=== PATIENT | female | born 1985 | race Caucasian/White ===

== ENCOUNTER → 2019-09-01 17:24 | Outpatient (CLI) | payer OTHER, SELFPAY ==
--- NOTE | ~2019-09-01 | MR_ITS ---
. EXAMINATION: MR lumbar spine wo con DATE: 09/01/2019 18:14 INDICATION: Low back pain radiating into hips and legs. TECHNIQUE: Magnetic resonance imaging (MRI) of the lumbar spine was performed without intravenous con trast. Sequences included sagittal T2-weighted FSE, sagittal T2-weighted FS FSE, sagittal T1-weighted FSE, and axial T2-weighted FSE. COMPARISON: None FINDINGS: There is 3 mm retrolisthesis of L5 on S1. There is mild chronic anterior wedging of T11 isaac tebral body. There are Schmorl's nodes from T10-T11 through L1-L2. There is moderately decreased disc height at L5-S1. The distal spinal cord signal intensity is normal. The conus medullaris is at L1-L2 . The following disc levels are specifically discussed: L1-L2: The disc does not extend beyond the endplate margin. There is mild bilateral facet joint osteo arthritis. There is no neural foraminal stenosis. There is no central canal stenosis. L2-L3: The disc does not extend beyond the endplate margin. There is mild bilateral facet joint osteo arthritis. There is no neural foraminal stenosis. There is no central canal stenosis. L3-L4: The disc does not extend beyond the endplate margin. There is mild bilateral facet joint osteo arthritis. There is no neural foraminal stenosis. There is no central canal stenosis. L4-L5: The disc is bulging and has an annular fissure. There is mild bilateral facet joint osteoarthr itis. There is mild bilateral neural foraminal stenosis. There is mild central canal stenosis. L5-S1: The disc is bulging and has a superimposed right central extrusion. There is mild bilateral fa cet joint osteoarthritis. There is mild bilateral neural foraminal stenosis. There is mild central ca nal stenosis. IMPRESSION: 1. Moderate lower lumbar spondylosis. Reviewed, dictated and finalized at location A. FRENCH
== END ==
DX: M47.896 Other spondylosis, lumbar region (principal)
CPT/HCPCS: 72148

== ENCOUNTER 2020-03-24 09:47 | Outpatient (CLI) | payer OTHER, SELFPAY ==
--- NOTE | ~2020-03-24 | US_ITS ---
EXAMINATION:US venous doppler LE BI INDICATION:Lower extremity swelling. TECHNIQUE: Multiple grayscale, color flow and Doppler images of the lower extremity deep venous syste ms were obtained and reviewed. COMPARISON:Ultrasound dated 12/27/2012 FINDINGS: The common femoral, superficial femoral and popliteal veins demonstrate normal respiratory variation, augmentation and compressibility. Color flow is also seen within the posterior tibial, pe roneal, greater saphenous and profunda veins. IMPRESSION: 1: No lower extremity deep venous thrombosis. Reviewed, dictated and finalized at location A.
== END 2020-03-24 09:48 | disposition home or self-care (01) ==
PROVIDERS: PCP Internal Medicine; Visit Provider Orthopaedic Surgery
DX: M79.89 Other specified soft tissue disorders (principal); Z98.1 Arthrodesis status
CPT/HCPCS: 93970

== ENCOUNTER 2021-06-20 11:25 | Outpatient (CLI) | payer OTHER, SELFPAY ==
--- NOTE | ~2021-06-20 | MMUS_ITS ---
EXAMINATION: MM diagnostic jus LT w melissa, US breast LT limited HISTORY: Palpable left breast abnormality TECHNIQUE: Additional 3-D tomosynthesis images of the left breast were performed and synthetic 2-D im ages were generated. CAD analysis was submitted and interpreted. High resolution Limited left breast ultrasound was performed. COMPARISON: None BREAST PARENCHYMAL COMPOSITION: The breasts are heterogenously dense, which may obscure small masses. FINDINGS: MAMMOGRAPHIC FINDINGS: There are no suspicious masses, calcifications or architectural distortion in the left breast to sugg est malignancy. ULTRASOUND: Limited left breast ultrasound: At 4:00 near the nipple there is an oval hypoechoic mass measuring 10 x 5 x 6 mm with posterior acoustic enhancement and no internal vascularity, most likely benign compl icated cyst. No additional masses are identified. This corresponds to the area of palpable concern. IMPRESSION: 1. Likely benign complicated cyst of the left breast at 4:00 near the nipple corresponding to the are a of palpable concern. 2. Recommend 6 month follow-up Limited left breast ultrasound BI-RADS category 3, probably benign findings. Reviewed, dictated and finalized at location A. NSIONAL INSPECTOR IMPRESSION: 1. Likely benign complicated cyst of the left breast at 4:00 near the nipple co rresponding to the area of palpable concern. 2. Recommend 6 month follow-up Limited left breast ultrasound BI-RADS category 3, probably benign findings.
== END 2021-06-20 11:26 | disposition home or self-care (01) ==
LOC: ANHIMG 11:29
PROVIDERS: PCP Internal Medicine; Visit Provider Obstetrics & Gynecology
DX: N64.4 Mastodynia (principal); R92.8 Other abnormal and inconclusive findings on diagnostic imaging of breast
CPT/HCPCS: 76642; 77061; 77065; G0279

== ENCOUNTER 2021-12-13 12:05 | Outpatient (CLI) | payer BC, OTHER, SELFPAY ==
[2021-12-13 12:36] LABS: Appearance Urine Slightly Cloudy (Clear); Bilirubin Urine Negative (Negative); Blood Urine 1+ (Negative); Glucose Urine UA Negative (Negative); Ketones Urine Negative (Negative); Leukocyte Esterase Ur 1+ LEU/UL (NEGATIVE); Nitrate Urine Negative (Negative); Protein Urine Negative (Negative); Specific Grav Ur 1.015 (1.001-1.035); Urobilinogen Urine 0.2 mg/dL (<2.0)
[2021-12-13 12:37] LABS: Add Urine Microscopic? YES; Color Urine Light Yellow (Yellow)
== END 2021-12-13 12:06 | disposition home or self-care (01) ==
LOC: ANHLAB 12:10
PROVIDERS: PCP Internal Medicine; Visit Provider Obstetrics & Gynecology
DX: R10.2 Pelvic and perineal pain (principal)
CPT/HCPCS: 81001; 87086

== ENCOUNTER 2022-01-21 17:57 | Emergency (ER) | payer BC, SELFPAY ==
--- NOTE | ~2022-01-21 | XR_ITS ---
XR wrist RT min 3V 01/21/2022 18:17 INDICATION: Right wrist pain PROCEDURE: 4 views right wrist COMPARISON: No prior studies for comparison. FINDINGS: Fracture, dislocation or subluxation is not identified. The soft tissues appear within norm al limits. No foreign bodies are identified. IMPRESSION: 1: NO ACUTE BONE OR JOINT ABNORMALITY IDENTIFIED. Reviewed, dictated and finalized at location A.
[2022-01-21 18:05] VITALS: BP 113/77; PULSE 78; RESP 16; TEMP 36.5; O2SAT 100
--- NOTE | 2022-01-21 18:19 | ED.UPPEXIN ---
HPI - Extremity Injury (Upper) General Chief Complaint: Extremity Injury, Upper Stated Complaint: right wrist Time Seen by Provider: 01/21/22 18:20 Source: patient and RN notes reviewed Mode of arrival: ambulatory Limitations: no limitations History of Present Illness HPI narrative: 36-year-old female presents to the [facility] with complaints of right wrist pain. Patient reports that she hit the ulnar aspect of the wrist on a picnic table just over 1 week ago. Minor bruising noted. Full range of motion. Positive radial pulse. No snuffbox tenderness. Related Data Home Medications Medication Instructions Recorded Confirmed No Home Medications 01/21/22 01/21/22 Allergies Allergy/AdvReac Type Severity Reaction Status Date / Time banana Allergy Intermediate Vomiting Verified 08/20/15 19:09 avocado Allergy Unknown ITCHY Verified 08/09/18 17:27 THROAT latex Allergy Unknown Unverified 08/20/15 19:09 acetaminophen AdvReac Unknown Verified 08/20/15 19:09 oxycodone AdvReac Unknown Verified 08/20/15 19:09 Review of Systems Review of Systems: All systems reviewed & are unremarkable except as noted in HPI and below Constitutional: Constitutional: Reports no additional constitutional complaints, Denies chills and Denies fever(s) Eyes: Eyes: Reports no additional eye complaints ENT: Reports system reviewed and no additional complaints, except as documented Cardiovascular: Cardiovascular: Reports no additional cardiovascular complaints Respiratory: Respiratory: Reports no additional respiratory complaints Gastrointestinal: Gastrointestinal: Reports no additional gastrointestinal complaints Musculoskeletal: Musculoskeletal: Reports as per HPI and Reports arthralgias (Right ulnar aspect wrist) Integumentary/Breasts: Skin/Breast: Reports system reviewed and no additional complaints, except as docu Neurologic: Reports system reviewed and no additional complaints, except as documented Psychiatric: Psychiatric: Reports no additional psychiatric complaints Allergic/Immunologic: Allergic/Immunologic: Reports no additional allergic/immunologic complaints PMFSH Past Medical History Medical History (Updated 01/23/22 @ 17:32 by Jia Garcia APRN) No significant medical problems Surgical History Surgical History No history of previous surgery Social History Social History (Updated 01/23/22 @ 17:30 by Jia Garcia APRN) Gender identity (if verbalized by the patient): Female Comments At the time of my signature, I reviewed and agree with the nursing past medical, surgical, social, and family history. There is no relevant family history pertinent to the patient complaint. Exam Const: General: healthy appearing, no acute distress and alert Nutritional Appearance: well nourished Orientation/consciousness: patient oriented x3 Limitations: no limitations HENMT: Head: normal to inspection Ears: external ears normal Eyes: General: appearance normal, both eyes and all related structures Pupils: Equal, round and reactive pupils present Neck: Neck: normal visual inspection, no lymphadenopathy and no meningeal signs Chest: Chest palpation & inspection: normal inspection of the chest Resp: Effort & Inspection: normal respiratory effort and no use of accessory muscles Auscultation: clear to auscultation bilaterally, no crackles, no rales, no rhonchi and no wheezes Cardio: Rate: regular rate Rhythm: regular rhythm Back/Spine/Pelvis: Cervical Spine: normal cervical lordosis Thoracic/Lumbar Spine: thoracic and lumbar spine normal to inspection Skin: General skin exam: normal color Rashes: no rashes Wounds: no wounds Neuro: General: patient oriented x3, moves all extremities, no meningeal signs and no focal motor deficits Cranial nerves: Yes Equal, round and reactive pupils present Speech: normal speech Gait exam (Neuro): Normal gait present Ex
== END 2022-01-21 18:30 | disposition home or self-care (01) ==
PROVIDERS: Emergency Provider Nurse Practitioner; PCP Internal Medicine
DX: S60.211A Contusion of right wrist, initial encounter (principal); W22.8XXA Striking against or struck by other objects, initial encounter
CPT/HCPCS: 73110; 99213; G0463

== ENCOUNTER 2022-08-04 11:12 | Emergency (ER) | payer BC, SELFPAY ==
--- NOTE | ~2022-08-04 | US_ITS ---
EXAMINATION: US right upper quadrant DATE: 08/04/2022 16:23 INDICATION: Right upper quadrant abdominal pain. TECHNIQUE: Multiple grayscale and Doppler ultrasound images of the abdomen were obtained. COMPARISON: Chest CT 04/25/2014 FINDINGS: The visualized portions of the head, body, and tail of the pancreas are normal. The liver i s normal without focal lesion. No liver surface nodularity. There is antegrade flow in main portal ve in. The gallbladder is normal in size. No gallstones or gallbladder wall thickening. There is no sono graphic Lux sign. The common duct is normal and measures 5 mm. IMPRESSION: 1. Normal right upper quadrant ultrasound. Reviewed, dictated and finalized at location A. WARE PROJECT ENGINEER
[2022-08-04 11:34] VITALS: BP 115/70; PULSE 74; RESP 16; TEMP 36.4; O2SAT 100
[2022-08-04 12:01] LABS: Appearance Urine Clear (Clear); Bilirubin Urine Negative (Negative); Blood Urine Trace-intact (Negative); Color Urine Yellow (Yellow); Glucose Urine UA Negative (Negative); Ketones Urine Negative (Negative); Leukocyte Esterase Ur Negative LEU/UL (Negative); Nitrate Urine Negative (Negative); Protein Urine Negative (Negative); Specific Grav Ur 1.015 (1.001-1.035); Urobilinogen Urine 0.2 mg/dL (<2.0); pH Urine 8.5 (5.0-9.0)
[2022-08-04 12:02] LABS: Basophils Percent Auto 1.1 % (0.2-1.2); Eosinophils Absolute Auto 0.1 K/mm3 (0-0.3); Eosinophils Percent Auto 2.8 % (0-4.4); Hematocrit 39.2 % (37.0-47.0); Hemoglobin 12.9 g/dL (12.0-15.0); Lymphocytes Absolute Auto 1.19 K/mm3 (0.9-3.2); Lymphocytes Percent Auto 42.2 % (18.3-44.2); Mean Corpuscular HGB Conc 32.9 g/dl (32-36); Mean Corpuscular Hemoglobin 29.1 pg (26-34); Mean Corpuscular Volume 88.3 fl (80-100); Mean Platelet Volume 10.7 fl (7.4-10.4); Monocytes Absolute Auto 0.2 K/mm3 (0.1-0.6); Monocytes Percent Auto 6.7 % (2.6-8.5); Neutrophils Absolute Auto 1.3 K/mm3 (1.3-6.7); Neutrophils Percent Auto 47.2 % (45.5-73.1); Platelet Count Result 183 k/mm3 (150-375); Red Blood Count 4.44 M/mm3 (4.2-5.4); Red Cell Distribution Width 12.4 % (11.5-14.5); White Blood Count 2.8 K/mm3 (4.5-10.0)
[2022-08-04 12:05] LABS: Add Urine Microscopic? YES
[2022-08-04 12:08] LABS: Bacteria Urine Trace /hpf; Mucus Urine Rare /lpf; RBC Urine 0-2 /hpf (0-2); Squamous Epithelial Cell Urine Many /hpf (Few); WBC Urine 0-3 /hpf
[2022-08-04 12:15] LABS: Alanine Aminotransferase 23 U/L (6-35); Albumin Level 4.4 g/dL (3.5-5.1); Alkaline Phosphatase 43 U/L (38-126); Anion Gap 6 mmol/L (8-16); Aspartate Amino Transferase 26 U/L (14-36); Bilirubin,Total 0.5 mg/dL (0.2-1.3); Blood Urea Nitrogen 9 mg/dL (7-17); Calcium 8.9 mg/dL (8.4-10.2); Carbon Dioxide 28 mmol/L (22-30); Chloride 105 mmol/L (98-107); Estimated CRCL calculation 93 ml/min; Estimated Glomerular Filt Rate > 60; Glucose 86 mg/dL (65-110); Lipase 68 U/L (23-300); Potassium 3.7 mmol/L (3.4-5.0); Sodium 139 mmol/L (137-145)
--- NOTE | 2022-08-04 17:35 | ED.ABDPAIN ---
HPI - Abdominal Pain General Chief Complaint: Abdominal Pain Stated Complaint: abd pain/vomiting Time Seen by Provider: 08/04/22 15:37 History of Present Illness HPI narrative: Patient is a 36-year-old female who presents ER with abdominal pain with nausea and vomiting. Reports she has been having intermittent upper abdominal pain that occurs after she eats. It causes her to have nausea and vomiting and she has had recurrent diarrhea with this. No blood. No fevers chills or sweats. No known sick contacts. Her PCP scheduled an outpatient ultrasound for but screening take couple weeks and she became increasingly concerned and came here for further evaluation. Her doctor did start her on pantoprazole. Related Data Home Medications Medication Instructions Recorded Confirmed pantoprazole 40 mg tablet,delayed mg PO 08/04/22 release Allergies Allergy/AdvReac Type Severity Reaction Status Date / Time banana Allergy Intermediate Vomiting Verified 08/04/22 15:56 avocado Allergy Unknown ITCHY Verified 08/04/22 15:56 THROAT latex Allergy Unknown Rash Verified 08/04/22 15:56 oxycodone AdvReac Unknown Dizziness Verified 08/04/22 15:56 Review of Systems Review of Systems: All systems reviewed & are unremarkable except as noted in HPI and below Constitutional: Constitutional: Denies chills, Denies fatigue and Denies fever(s) Cardiovascular: Cardiovascular: Denies chest pain, Denies rapid heart rate and Denies radiating jaw, neck or arm pain Respiratory: Respiratory: Denies cough and Denies dyspnea Gastrointestinal: Gastrointestinal: Reports abdominal pain, Reports diarrhea, Reports nausea and Reports vomiting Genitourinary: Genitourinary: Denies dysuria and Denies flank pain [facility] Past Medical History Medical History (Updated 08/04/22 @ 17:39 by Harshal Olmedo MD) Anxiety Arthritis delivery delivered 3 History of gastrectomy Hypertension No significant medical problems Screening for breast cancer Surgical History Surgical History (Updated 05/21/22 @ 08:11 by Adamaris Trejo CMA) H/O breast surgery H/O dilation and curettage H/O tubal ligation H/O: hysterectomy History of lumbar fusion No history of previous surgery Status post hysteroscopic ablation of endometrium Family History Family History Father Heart disease Skin cancer Mother Diabetes mellitus Fibromyalgia Social History Social History (Reviewed 05/21/22 @ 08:11 by MYAH Oshea Smoking status: Never smoker Alcohol intake: never Substance use: never Gender identity (if verbalized by the patient): Female Exam Narrative: GENERAL: Well-appearing, well-nourished, and in no acute distress. HEAD: Normocephalic, atraumatic. EYES: PERRL and EOMI. ENT: Mucous membranes moist. CHEST: Clear to auscultation. No respiratory distress. HEART: Regular rate and rhythm. Normal peripheral pulses. ABDOMEN: Soft, nontender except for with inspiration in the right upper quadrant, nondistended, normal active bowel sounds. EXTREMITIES: Normal range of motion. No edema. SKIN: Warm, dry, no rash. NEURO: Alert and oriented x3. PSYCH: Normal mood and affect. Course Course Emergency Course: Patient informed results. Feels well this time. Ready for discharge. Recommend low-fat diet patient verbalized understanding. Also discussed need for follow-up with GI and PCP. Vital Signs Vital signs: Vital Signs Temperature 97.6 F 08/04/22 11:34 Pulse Rate 74 08/04/22 11:34 Respiratory Rate 16 08/04/22 11:34 Blood Pressure 115/70 08/04/22 11:34 Pulse Oximetry 100 08/04/22 11:34 Temperature 97.6 F 08/04/22 11:34 Pulse Rate 74 08/04/22 11:34 Respiratory Rate 16 08/04/22 11:34 Blood Pressure 115/70 08/04/22 11:34 Pulse Oximetry 100 08/04/22 11:34 MDM - Abdominal Pain Lab Data 08/04/22 11:48 08/04/22 11:48
== END 2022-08-04 17:55 | disposition home or self-care (01) ==
PROVIDERS: Emergency Provider Emergency Medicine; PCP Internal Medicine
DX: R10.13 Epigastric pain (principal); R10.84 Generalized abdominal pain; I10 Essential (primary) hypertension
CPT/HCPCS: 36415; 76705; 80053; 81001; 81025; 83690; 85025; 99284

== ENCOUNTER 2022-08-15 11:31 | Outpatient (CLI) | payer BC, SELFPAY ==
--- NOTE | ~2022-08-15 | NM_ITS ---
EXAMINATION: NM hepatobiliary wo pharm DATE: 08/15/2022 15:01 INDICATION: Abdominal pain. COMPARISON: Ultrasound 08/04/2022 TECHNIQUE: 5 mCi Tc-99m mebrofenin (Choletec) was administered intravenously. Scintigraphic images o f the abdomen were obtained for one hour. Then, the patient drank 8 oz Ensure, and imaging was contin ued for 60 minutes. FINDINGS: There is normal clearance of radiotracer from the blood pool. There is homogeneous tracer u ptake by the liver. Activity progresses to the bowel and gallbladder. Gallbladder ejection fraction (GBEF) was 25%. Note that with this technique, normal GBEF >= 33%. IMPRESSION: 1. Low gallbladder ejection fraction, consistent with gallbladder dysfunction and/or chronic cholecy stitis. Reviewed, dictated and finalized at location A. WARE RELEASE MANAGER IMPRESSION: 1. Low gallbladder ejection fraction, consistent with gallbladder dysfunction and/or chronic cholecystitis.
== END 2022-08-15 11:32 | disposition home or self-care (01) ==
PROVIDERS: PCP Internal Medicine; Visit Provider Internal Medicine
DX: R10.9 Unspecified abdominal pain (principal)
CPT/HCPCS: 78226; A9537

== ENCOUNTER 2023-09-14 17:25 | Emergency (ER) | payer BC, SELFPAY ==
--- NOTE | 2023-09-14 17:28 | ED.URI ---
HPI - URI/Sore Throat General Chief Complaint: Ear Stated Complaint: left ear/throat pain Time Seen by Provider: 09/14/23 17:28 Source: patient Mode of arrival: ambulatory Limitations: no limitations History of Present Illness HPI Narrative: Elizabeth is a 37-year-old female patient presenting to the clinic today with complaints of sore throat and left ear pain x1 day. She reports no known fever, chills, body aches. Has had some nasal congestion but normally has seasonal allergies. MD elicited complaint: sore throat and nasal congestion Related Data Home Medications Medication Instructions Recorded Confirmed No Home Medications 09/14/23 09/14/23 Allergies Allergy/AdvReac Type Severity Reaction Status Date / Time banana Allergy Intermediate Vomiting Verified 09/14/23 17:36 avocado Allergy Unknown ITCHY Verified 09/14/23 17:36 THROAT latex Allergy Unknown Rash Verified 09/14/23 17:36 oxycodone AdvReac Unknown Dizziness Verified 09/14/23 17:36 Review of Systems Review of Systems: Pertinent positives per HPI. Patient denies any fever, chills, rash, headache, visual changes, dizziness, cough, shortness of breath, chest pain, palpitations, nausea, vomiting, diarrhea, constipation, abdominal pain, or any urinary issues. [facility] Past Medical History Medical History Anxiety Arthritis delivery delivered 3 History of gastrectomy Hypertension No significant medical problems Screening for breast cancer Surgical History Surgical History H/O breast surgery H/O dilation and curettage H/O tubal ligation H/O: hysterectomy History of lumbar fusion No history of previous surgery Status post hysteroscopic ablation of endometrium Family History Family History Father Heart disease Skin cancer Mother Diabetes mellitus Fibromyalgia Social History Social History Smoking status: Never smoker Alcohol intake: never Substance use: never Gender identity (if verbalized by the patient): Female Comments At the time of my signature, I reviewed and agree with the nursing past medical, surgical, social, and family history. There is no relevant family history pertinent to the patient complaint. Exam Narrative: General: Well-developed, well nourished, in no apparent distress Head: Normocephalic, atraumatic Eyes: Pupils equally round and reactive to light bilaterally, EOM intact, sclera and conjunctive clear, no discharge, lids normal Ears: TMs intact and clear, ear canals clear, no drainage, grossly hearing normal. Nose: Nares patent, clear nasal discharge, no inflammation, no sinus tenderness. Mouth: Oral pharynx without lesions or masses, good dentition, MMM. Neck: Supple, trachea midline, no enlargement of anterior or posterior cervical nodes, no thyroid masses or goiter palpable. Cardio: Regular rate and rhythm, s1 and s2 normal, no murmur appreciated. Resp: Clear to auscultation bilaterally, no rhonchi, rales, wheezing or rubs Course Course Emergency Course: Portions of this record may have been created with voice recognition software. Level of Care: Express Care Visit Vital Signs Vital signs: Vital signs reviewed MDM - URI/Sore Throat MDM Narrative Medical decision making narrative: At the time of visit patient is resting comfortably on the exam table. Patient appears to be nontoxic. Labs: Strep test was performed and was negative in the clinic today. Plan: I suspect patient has allergic rhinitis/left otalgia/pharyngitis. Supportive measures were discussed with the patient and they voiced understanding discharge instructions and agrees to treatment plan. Return precautions reviewed Differential Diagnosis Differential diagnosis: Likely upp
[2023-09-14 17:35] VITALS: BP 116/74; PULSE 85; RESP 16; TEMP 36.4; O2SAT 99
[2023-09-14 17:44] VITALS: BP 116/74; PULSE 85; RESP 16; TEMP 36.4; O2SAT 99
== END 2023-09-14 18:00 | disposition home or self-care (01) ==
PROVIDERS: Emergency Provider Nurse Practitioner Family
DX: J30.9 Allergic rhinitis, unspecified (principal); J02.9 Acute pharyngitis, unspecified; H92.02 Otalgia, left ear; M19.90 Unspecified osteoarthritis, unspecified site
CPT/HCPCS: 87081; 87880; 99213; G0463

== ENCOUNTER 2023-09-21 16:43 | Emergency (ER) | payer BC, SELFPAY ==
--- NOTE | ~2023-09-21 | XR_ITS ---
EXAMINATION: XR toe 5th RT min 2V DATE: 09/21/2023 17:06 INDICATION: Right fifth toe injury. TECHNIQUE: 4 views of right fifth toe were obtained. COMPARISON: None. FINDINGS: Bone alignment is normal. No fracture. There is mild osteoarthritis of fifth proximal inter phalangeal joint and fifth metacarpophalangeal joint. IMPRESSION: 1. No fracture. Reviewed, dictated and finalized at location A. IMPRESSION: 1. No fracture.
[2023-09-21 16:50] VITALS: BP 118/83; PULSE 71; RESP 16; TEMP 36.9; O2SAT 100
--- NOTE | 2023-09-21 17:45 | ED.GENADULT ---
HPI - General Adult General Chief complaint: Extremity Injury, Lower Stated complaint: Right Foot Pinky Toe Pain Time Seen by Provider: 09/21/23 17:44 Source: patient, RN notes reviewed and old records reviewed Mode of arrival: ambulatory Limitations: no limitations History of Present Illness HPI narrative: 37-year-old female presents to the [facility] with pain, swelling, bruising to the right 5th toe. Patient states that she had the toe on the corner of a wall on Thursday, 2 days ago. Has taken Tylenol. Unable to take ibuprofen due to history of a gastric sleeve. Bruising noted to the 5th toe, decreased range of motion, tender Onset (ago): day(s) (2) Treatments prior to arrival: other (Tylenol) Related Data Home Medications Medication Instructions Recorded Confirmed No Home Medications 09/14/23 09/21/23 Allergies Allergy/AdvReac Type Severity Reaction Status Date / Time banana Allergy Intermediate Vomiting Verified 09/21/23 17:13 avocado Allergy Unknown ITCHY Verified 09/21/23 17:13 THROAT latex Allergy Unknown Rash Verified 09/21/23 17:13 oxycodone AdvReac Unknown Dizziness Verified 09/21/23 17:13 Review of Systems Review of Systems: All systems reviewed & are unremarkable except as noted in HPI and below Constitutional: Constitutional: Reports no additional constitutional complaints Eyes: Eyes: Reports no additional eye complaints ENT: Reports system reviewed and no additional complaints, except as documented Cardiovascular: Cardiovascular: Reports no additional cardiovascular complaints, Denies chest pain and Denies dyspnea Respiratory: Respiratory: Reports no additional respiratory complaints, Denies chest congestion, Denies cough and Denies dyspnea Gastrointestinal: Gastrointestinal: Reports no additional gastrointestinal complaints, Denies abdominal pain, Denies nausea and Denies vomiting Musculoskeletal: Musculoskeletal: Reports as per HPI, Reports arthralgias, Reports joint swelling and Reports other (Bruising 5th toe right) Integumentary/Breasts: Skin/Breast: Reports system reviewed and no additional complaints, except as docu Neurologic: Reports system reviewed and no additional complaints, except as documented Psychiatric: Psychiatric: Reports no additional psychiatric complaints Allergic/Immunologic: Allergic/Immunologic: Reports no additional allergic/immunologic complaints PMFSH Past Medical History Medical History (Updated 09/21/23 @ 17:54 by Jia Garcia APRN) Anxiety Arthritis delivery delivered 3 History of gastrectomy Hypertension No significant medical problems Screening for breast cancer Surgical History Surgical History (Updated 09/21/23 @ 17:51 by Jia Garcia APRN) H/O breast surgery H/O dilation and curettage H/O gastric sleeve 2018 H/O tubal ligation H/O: hysterectomy History of lumbar fusion Hx of cholecystectomy 2022 No history of previous surgery Status post hysteroscopic ablation of endometrium Family History Family History Father Heart disease Skin cancer Mother Diabetes mellitus Fibromyalgia Social History Social History Smoking status: Never smoker Alcohol intake: never Substance use: never Gender identity (if verbalized by the patient): Female Comments At the time of my signature, I reviewed and agree with the nursing past medical, surgical, social, and family history. There is no relevant family history pertinent to the patient complaint. Exam Const: General: cooperative, healthy appearing, comfortable, no acute distress, well developed, alert and well nourished Nutritional Appearance: well nourished Orientation/consciousness: patient oriented x3 Limitations: no limitations HENMT: Head: normal to inspection Ears: hearing grossly normal bilaterally and external ears normal Face/Nose/Sinus: Nor
== END 2023-09-21 17:55 | disposition home or self-care (01) ==
PROVIDERS: Emergency Provider Nurse Practitioner; PCP Internal Medicine
DX: S90.121A Contusion of right lesser toe(s) without damage to nail, initial encounter (principal); W22.09XA Striking against other stationary object, initial encounter; M19.90 Unspecified osteoarthritis, unspecified site; I10 Essential (primary) hypertension
CPT/HCPCS: 73660; 99213; G0463

== ENCOUNTER 2023-12-02 08:49 | Emergency (ER) | payer BC, SELFPAY ==
[2023-12-02] VITALS (13 sets, daily range): BP systolic 103–134; BP diastolic 71–86; PULSE 59–108; RESP 14–20; TEMP 36.5; O2SAT 100
[2023-12-02] MEDS: diphenhydrAMINE HCl INJ 50 MG/ML VIAL 25 MG IV PUSH ×2 (09:09→10:47)
[2023-12-02] MEDS: SODIUM CHLORIDE 0.9% IV 1,000 ML 999 ML IV CONT (09:10)
[2023-12-02] MEDS: FAMOTIDINE 20 MG/2 ML VIAL IV PUSH (09:10)
[2023-12-02] MEDS: methylPREDNISolone SOD SUCC 125 MG VIAL IV PUSH (09:10)
--- NOTE | 2023-12-02 10:09 | ED.ALLEREA ---
HPI - Allergic Reaction General Chief complaint: Allergic Reaction Stated complaint: allergic reaction Time Seen by Provider: 12/02/23 08:57 History of Present Illness HPI narrative: 38-year-old female presents to the emergency room for evaluation of sudden onset of rash the p.m. last night. Patient states she experienced the itching sensation in her groin area last night, quickly spread to her face. Patient states that she developed redness, swelling and itching sensation to her face. Patient states she took Sanjuanita without improvement of her symptoms. Denies any shortness of breath, difficulty breathing, wheezing. Denies swelling of her lips or tongue. Patient denies any new environmental exposures, changes to soaps, detergents. Denies any exposure to new foods or medications. Related Data Allergies Allergy/AdvReac Type Severity Reaction Status Date / Time banana Allergy Intermediate Vomiting Verified 12/02/23 08:49 avocado Allergy Unknown ITCHY Verified 12/02/23 08:49 THROAT latex Allergy Unknown Rash Verified 12/02/23 08:49 oxycodone AdvReac Unknown Dizziness Verified 12/02/23 08:49 Review of Systems Review of Systems: ROS unremarkable except for stated in HPI PMFSH Past Medical History Medical History Anxiety Arthritis delivery delivered 3 History of gastrectomy Hypertension No significant medical problems Screening for breast cancer Surgical History Surgical History H/O breast surgery H/O dilation and curettage H/O gastric sleeve 2018 H/O tubal ligation H/O: hysterectomy History of lumbar fusion Hx of cholecystectomy 2022 No history of previous surgery Status post hysteroscopic ablation of endometrium Family History Family History Father Heart disease Skin cancer Mother Diabetes mellitus Fibromyalgia Social History Social History Smoking status: Never smoker Alcohol intake: never Substance use: never Gender identity (if verbalized by the patient): Female Exam Narrative: GENERAL: Well-appearing, well-nourished, no physical limitations, and in no acute distress. HEAD: Normocephalic, atraumatic. EYES: Conjunctivae normal, PERRLA and EOMI. ENT: External nose normal, Nares clear, no rhinorrhea or epistaxis. Mucous membranes moist. Oropharynx without tonsillar hypertrophy exudate or other lesions. NECK: Supple. CHEST: Clear to auscultation. No respiratory distress. No wheezes rales or rhonchi. HEART: Regular rate and rhythm. No murmur heard. Normal peripheral pulses. EXTREMITIES: Normal range of motion. No edema. No clubbing or cyanosis SKIN: Warm, dry, no wounds. Erythema and edema noted to face. Erythematous raised rash to right wrist, consistent with contact dermatitis NEURO: No focal deficits. Alert and oriented x3. MAEW. CN's II-XI intact bilaterally, normal gait PSYCH: Cooperative. Normal mood and affect. Course Vital Signs Vital signs: Vital Signs Temperature 36.5 C 12/02/23 08:54 Pulse Rate 108 H 12/02/23 08:54 Respiratory Rate 20 12/02/23 08:54 Blood Pressure 134/86 12/02/23 08:54 Pulse Oximetry 100 12/02/23 08:54 Oxygen Delivery Room Air 12/02/23 08:54 Temperature 36.5 C 12/02/23 08:54 Pulse Rate 60 12/02/23 11:16 Respiratory Rate 17 12/02/23 11:16 Blood Pressure 107/78 12/02/23 11:16 Pulse Oximetry 100 12/02/23 11:16 Oxygen Delivery Room Air 12/02/23 11:18 Discharge Plan Discharge Clinical Impression: Allergic reaction, Urticaria Patient Disposition: Home, Self-Care Condition: Stable Instructions: Antibiotic Form, Urticaria (ED) Prescriptions: New prednisone 20 mg tablet 60 mg PO DAILY 5 Days Qty: 15 0RF Follow-up/Referrals: Jatin Oleary,
== END 2023-12-02 12:09 | disposition home or self-care (01) ==
PROVIDERS: Emergency Provider Nurse Practitioner Family
DX: L50.0 Allergic urticaria (principal); I10 Essential (primary) hypertension; M19.90 Unspecified osteoarthritis, unspecified site; Z98.84 Bariatric surgery status; Z90.710 Acquired absence of both cervix and uterus; Z98.1 Arthrodesis status
CPT/HCPCS: 96361; 96374; 96375; 99284; J1200; J2919; J7030

== ENCOUNTER 2023-12-03 01:41 | Emergency (ER) | payer BC, SELFPAY ==
[2023-12-03 01:43] VITALS: BP 137/85; PULSE 86; RESP 20; TEMP 36.9; O2SAT 100
[2023-12-03 01:56] VITALS: O2SAT 100
[2023-12-03 02:08] LABS: Basophils Percent Auto 0.2 % (0.2-1.2); Eosinophils Percent Auto 0.1 % (0-4.4); Hematocrit 37.8 % (37.0-47.0); Hemoglobin 12.7 g/dL (12.0-15.0); Immature Granulocyte Absolute 0.03 K/mm3 (0.00-0.031); Immature Granulocyte Percent A 0.4 % (0-0.5); Lymphocytes Absolute Auto 1.21 K/mm3 (0.9-3.2); Lymphocytes Percent Auto 14.5 % (18.3-44.2); Mean Corpuscular HGB Conc 33.6 g/dl (32-36); Mean Corpuscular Hemoglobin 29.6 pg (26-34); Mean Corpuscular Volume 88.1 fl (80-100); Monocytes Absolute Auto 0.6 K/mm3 (0.1-0.6); Monocytes Percent Auto 7.5 % (2.6-8.5); Neutrophils Absolute Auto 6.5 K/mm3 (1.3-6.7); Neutrophils Percent Auto 77.3 % (45.5-73.1); Platelet Count Result 231 k/mm3 (150-375); Red Blood Count 4.29 M/mm3 (4.2-5.4); Red Cell Distribution Width 13.2 % (11.5-14.5); White Blood Count 8.4 K/mm3 (4.5-10.0)
[2023-12-03 02:19] LABS: Alanine Aminotransferase 15 U/L (6-35); Albumin Level 4.2 g/dL (3.5-5.1); Alkaline Phosphatase 51 U/L (38-126); Anion Gap 8 mmol/L (4-12); Aspartate Amino Transferase 23 U/L (14-36); Bilirubin,Total 0.4 mg/dL (0.2-1.3); Blood Urea Nitrogen 13 mg/dL (7-17); Carbon Dioxide 23 mmol/L (22-30); Chloride 107 mmol/L (98-107); Estimated CRCL calculation 126 ml/min; Estimated Glomerular Filt Rate > 60; Glucose 86 mg/dL (65-110); Potassium 3.4 mmol/L (3.4-5.0); Sodium 138 mmol/L (137-145)
[2023-12-03 02:32] LABS: Strep Group A RT-PCR NOT DETECTED (Negative)
--- NOTE | 2023-12-03 03:01 | ED.ALLEREA ---
HPI - Allergic Reaction General Chief complaint: Allergic Reaction Stated complaint: allergic reaction here earlier, left arm numbness Time Seen by Provider: 12/03/23 01:49 History of Present Illness HPI narrative: Patient is a 38-year-old female who presents to the emergency department this morning complaining of a rash to her face, neck, and itching in her vaginal area. Patient states that she was here earlier in the day for similar symptoms and was administered IV Solu-Medrol, Benadryl and Pepcid and discharged from the emergency department with a script for prednisone. Patient states that symptoms have persisted and right now she is complaining of itchiness all over that is extremely uncomfortable. Patient denies any throat swelling, difficulty breathing and denies any additional symptoms including nausea, vomiting, abdominal pain, denies any chest pain or shortness of breath, and denies any fevers or chills at home. Patient has a known allergies to banana, avocado, Lasix and oxycodone, however, she has not had any exposure to any of these allergens. No additional symptoms or concerns at this time. Related Data Allergies Allergy/AdvReac Type Severity Reaction Status Date / Time banana Allergy Intermediate Vomiting Verified 12/02/23 08:49 avocado Allergy Unknown ITCHY Verified 12/02/23 08:49 THROAT latex Allergy Unknown Rash Verified 12/02/23 08:49 oxycodone AdvReac Unknown Dizziness Verified 12/02/23 08:49 Review of Systems Review of Systems: All systems are reviewed and are negative unless stated otherwise in the HPI. [facility] Past Medical History Medical History Anxiety Arthritis delivery delivered 3 History of gastrectomy Hypertension No significant medical problems Screening for breast cancer Surgical History Surgical History H/O breast surgery H/O dilation and curettage H/O gastric sleeve 2018 H/O tubal ligation H/O: hysterectomy History of lumbar fusion Hx of cholecystectomy 2022 No history of previous surgery Status post hysteroscopic ablation of endometrium Family History Family History Father Heart disease Skin cancer Mother Diabetes mellitus Fibromyalgia Social History Social History Smoking status: Never smoker Alcohol intake: never Substance use: never Gender identity (if verbalized by the patient): Female Exam Narrative: General: Alert, awake, afebrile, in no acute distress. HEENT: PERRL, no rhinorrhea, no post nasal drip, oropharynx clear, no facial swelling noted, patient's face and neck do appear flushed. Cardiovascular: Regular rate and rhythm, no murmurs, rubs or gallops, no peripheral edema. Respiratory: Clear to auscultation bilaterally, no tachypnea, no wheezing, no rhonchi, no rubs, no respiratory distress. Abdomen: Soft, nontender, nondistended, no rebound, no guarding, no peritoneal signs. Genitals: No rash or erythema noted. Musculoskeletal: No joint swelling or deformity, normal muscle tone. Skin: No rashes or petechia, no signs of infection, no urticarial rash noted anywhere in the patient's part. Neurological: Alert and oriented to person, place, and time. Follows all commands. No focal deficits, speech is clear and fluent. Course Vital Signs Vital signs: Vital Signs Temperature 98.4 F 12/03/23 01:43 Pulse Rate 86 12/03/23 01:43 Respiratory Rate 20 12/03/23 01:43 Blood Pressure 137/85 12/03/23 01:43 Pulse Oximetry 100 12/03/23 01:43 Oxygen Delivery Room Air 12/03/23 01:43 Temperature 98.4 F 12/03/23 01:43 Pulse Rate 86 12/03/23 01:43 Respiratory Rate 20 12/03/23 01:43 Blood Pressure 137/85 12/03/23 01:43 Pulse Oximetry 100 12/03/23 01:56 Oxygen Delivery Room Air 12/03/23 01:
[2023-12-03 03:23] VITALS: BP 122/82; PULSE 69; RESP 13; TEMP 37.2; O2SAT 100
[2023-12-03] MEDS: FAMOTIDINE 20 MG/2 ML VIAL IV PUSH (03:26)
[2023-12-03] MEDS: diphenhydrAMINE HCl INJ 50 MG/ML VIAL IV PUSH (03:26)
== END 2023-12-03 04:29 | disposition home or self-care (01) ==
PROVIDERS: Emergency Provider Emergency Medicine
DX: T78.40XA Allergy, unspecified, initial encounter (principal); R21 Rash and other nonspecific skin eruption; I10 Essential (primary) hypertension; M19.90 Unspecified osteoarthritis, unspecified site; Z98.84 Bariatric surgery status; Z88.8 Allergy status to other drugs, medicaments and biological substances; Z91.018 Allergy to other foods; Z90.49 Acquired absence of other specified parts of digestive tract; X58.XXXA Exposure to other specified factors, initial encounter
CPT/HCPCS: 36415; 80053; 85025; 87651; 96374; 96375; 99284; J1200

== ENCOUNTER 2023-12-06 21:04 | Emergency (ER) | payer BC, SELFPAY ==
[2023-12-06 21:08] VITALS: BP 134/88; PULSE 98; RESP 19; TEMP 37; O2SAT 100
[2023-12-06] MEDS: diphenhydrAMINE HCl INJ 50 MG/ML VIAL IV PUSH (21:47)
[2023-12-06] MEDS: FAMOTIDINE 20 MG/2 ML VIAL IV PUSH (21:48)
[2023-12-06] MEDS: hydrOXYzine HCL 25 MG TABLET PO (21:48)
[2023-12-06 22:04] VITALS: O2SAT 100
--- NOTE | 2023-12-06 22:37 | ED.ALLEREA ---
HPI - Allergic Reaction General Chief complaint: Allergic Reaction Stated complaint: hives Time Seen by Provider: 12/06/23 21:06 Source: patient Mode of arrival: ambulatory Limitations: no limitations History of Present Illness HPI narrative: Patient is a 38-year-old female who presents the ED with report of urticaria. Patient reports she has been seen in the ED twice in the last 1 week (12/01, 12/02) for similar sx's. Was given Solu-Medrol, Pepcid, Benadryl in the ED, discharged on short course of prednisone. States symptoms have continued to worsen since then. Reports hives to her arms, stomach, neck, face, right groin. Has been taking Sanjuanita hives and Benadryl at home without further improvement. Has known allergies to banana, avocado, Lasix, oxycodone, denies known exposure to these. She does report that she ate a new brand of yogurt last Thursday and the label did state could contain avocado oil. She has not had any further of the yogurt since then. Denies difficulty breathing or swallowing. Denies swelling of face, lips, tongue, throat. Denies nausea, vomiting, fevers. Related Data Allergies Allergy/AdvReac Type Severity Reaction Status Date / Time banana Allergy Intermediate Vomiting Verified 12/02/23 08:49 avocado Allergy Unknown ITCHY Verified 12/02/23 08:49 THROAT latex Allergy Unknown Rash Verified 12/02/23 08:49 oxycodone AdvReac Unknown Dizziness Verified 12/02/23 08:49 Review of Systems Review of Systems: CONSTITUTIONAL: Denies fever, chills, or sweats. CARDIOVASCULAR: Denies chest pain. RESPIRATORY: Denies cough or dyspnea. GASTROINTESTINAL: Denies abdominal pain, nausea, vomiting. SKIN: See HPI All systems reviewed & are unremarkable except as noted in HPI and below PMFSH Past Medical History Medical History Anxiety Arthritis delivery delivered 3 History of gastrectomy Hypertension No significant medical problems Screening for breast cancer Surgical History Surgical History H/O breast surgery H/O dilation and curettage H/O gastric sleeve 2019 H/O tubal ligation H/O: hysterectomy History of lumbar fusion Hx of cholecystectomy 2022 No history of previous surgery Status post hysteroscopic ablation of endometrium Family History Family History Father Heart disease Skin cancer Mother Diabetes mellitus Fibromyalgia Social History Social History Smoking status: Never smoker Alcohol intake: never Substance use: never Gender identity (if verbalized by the patient): Female Exam Narrative: GENERAL: Well appearing, well-nourished, non-toxic, in no acute distress. HEAD: Normocephalic, atraumatic. ENT: Flushed appearance to face and neck. MMs moist, no swelling of lips, tongue. No stridor or distress. RESPIRATORY: Airway patent, respirations nonlabored. Clear to auscultation bilaterally, no rales, rhonchi, wheezing. CARDIOVASCULAR: Regular rate and rhythm MUSCULOSKELETAL: Moves all extremities. No gross deformities. SKIN: Warm, dry, normal color. Scattered areas of urticaria, splotchy erythema to bilateral forearms ventrally, neck, abdomen. Superficial sunburn noted to back. NEURO: A&O X3. Speech clear. PSYCHIATRIC: Appropriate mood and affect. Normal interaction. Course Vital Signs Vital signs: Vital Signs Temperature 98.6 F 12/06/23 21:08 Pulse Rate 98 12/06/23 21:08 Respiratory Rate 19 12/06/23 21:08 Blood Pressure 134/88 12/06/23 21:08 Pulse Oximetry 100 12/06/23 21:08 Oxygen Delivery Room Air 12/06/23 21:08 Temperature 98.6 F 12/06/23 21:08 Pulse Rate 98 12/06/23 21:08 Respiratory Rate 19 12/06/23 21:08 Blood Pressure 134/88 12/06/23 21:08 Pulse Oximetry 100
== END 2023-12-07 | disposition home or self-care (01) ==
PROVIDERS: Emergency Provider Physician Assistant
DX: L50.9 Urticaria, unspecified (principal); F41.9 Anxiety disorder, unspecified; M19.90 Unspecified osteoarthritis, unspecified site; I10 Essential (primary) hypertension
CPT/HCPCS: 96374; 96375; 99284; A9270; J1200

== ENCOUNTER 2024-12-19 18:36 | Emergency (ER) | payer BC, SELFPAY ==
--- NOTE | ~2024-12-19 | XR_ITS ---
XR knee RT 3V Ordering provider: Lian Florentino MD History: . pain, injury . Comparison: None. FINDINGS: BONES: No acute fracture or dislocation. JOINT SPACES: Normal. SOFT TISSUES: Normal. IMPRESSION: No acute osseous abnormality right knee. Reviewed, dictated and finalized at location A.
[2024-12-19 18:38] VITALS: BP 136/72; PULSE 111; RESP 16; TEMP 36.5; O2SAT 100
--- OUTSIDE RECORDS SUMMARY | 2024-12-19 18:39 | XMS_ITS | Encounter Summary ---
Author Organization [facility] Address [address] [place] [address] Care Team Providers Care Learning Strategist Name Role Phone Jace Hirsch MD Primary Care Provider [phone] Encounter Details Date Type Department Care Team (Late st Contact Info) Description 09/29/[address] [id number] Ady Augustine MD [address] [id number] Social History Tobacco Use Types Packs/Day Years Used Date Smoking Tobacco: Former Smokeless Tobacco: Never Alcohol Use Standard Drinks/Week Comments Yes 0 (1 standard drink = 0.6 oz pur e alcohol) Comments No Sex and Gender Information Value Date Recorded Sex Assigned at Not on file Legal Sex Female 11:02 AM [employer]LE [employer] Gender Identity Not on file Sexual Orientation Not on file documented as of this encounter Plan of Treatment Not on file documented as of this encounter Visit Diagnoses Not on filedocumented in this encounter Care Teams Learning Strategist Relationship Specialty Start Date End Date Jace Hirsch MD [address] [place] [address] PCP - General Internal Medicine 09/16/18 documented as of this encounter
--- OUTSIDE RECORDS SUMMARY | 2024-12-19 18:39 | XMS_ITS | Clinical Summary ---
Author Organization [facility] Address [address] [place] [id number] Care Team Providers Care Portable Machine Cutter Name Role Phone No, Physician Primary Care Provider [phone] Allergies Active Allergy Reactions Criticality Noted Date Comments Avocado Hives Medium 07/31/2017 Banana Stomach upset Low 12/22/2017 Latex Rash Medium 07/31/2017 Morphine Itching Low 09/30/2018 Oxycodone-Acetaminophen Other (See comments) Low Light headed Medications cetirizine (ZyrTEC) 10 mg tablet Take 2 tablets (20 mg total) by mouth daily 60 tablet 12/11/2023 Active hydrOXYzine (ATARAX) 10 mg tablet Take 1 tablet (10 mg total) by mouth nightly as needed for itching 30 tablet 12/11/2023 Active Active Problems Problem Noted Date Diagnosed Date Urticarial rash 12/10/2023 Abnormal mammogram 08/09/2021 Phyllodes tumor, benign, 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 Paresthesia of skin Family History Medical History Relation Name Comments Heart disease Father Hypertension Father Diabetes Mother Relation Name Status Comments Father Mother Social History Tobacco Use Types Packs/Day Years Used Date Smoking Tobacco: Former Smokeless Tobacco: Never Tobacco Cessation:Counseling Given: Not Answered Alcohol Use Standard Drinks/Week Comments Yes 0 (1 standard drink = 0.6 oz pur e alcohol) rarely Personal Safety Answer Date Recorded Have you ever been in or are you currently in a harmful physical or emotional relationship or is someone making you feel afraid or unsafe? Denies 12/10/2023 Comments Unknown Sex and Gender Information Value Date Recorded Sex Assigned at Not on file Legal Sex Female 11:31 AM RN SOCIAL SERVICES Gender Identity Not on file Sexual Orientation Not on file Obstetrics History Last Filed Vital Signs Vital Sign Reading Time Taken Comments Blood Pressure 110/66 12/11/2023 10:05 AM CDT Pulse 70 12/11/2023 10:05 AM CDT Temperature 36.4 C (97.6 F) 12/10/2023 4:14 PM CDT Respiratory Rate 16 12/11/2023 10:05 AM CDT Oxygen Saturation 100% 12/11/2023 10:05 AM CDT Inhaled Oxygen Concentration - - Weight 72.6 kg (160 lb) 12/10/2023 4:14 PM CDT Height 162.6 cm (5' 4) 12/10/2023 4:14 PM CDT Body Mass Index 27.46 12/10/2023 4:14 PM CDT Plan of Treatment Health Maintenance Due Date Last Done Comments Cervical Cancer Screening 1983 Depression Screening 1983 Hepatitis C Screening 1983 DTaP/Tdap/Td Vaccine (1 - Tdap) 10/21/1994 Varicella Vaccines (1 of 2 - 13+ 2-dose series) 10/21/1996 Hepatitis B Screening 10/21/2001 Regular Well Visit/Exam 18-64 10/21/2001 Breast Cancer Screening-Mammogram 07/22/2024 07/22/2023, 06/29/2018 Influenza Vaccine (Season Ended) 2025 HPV Vaccines Aged Out No longer eligi ble based on patient's age to complete this topic Pneumococcal vaccine <65 Aged Out No longer eligible based on patient's age to complete this topic Procedures Procedure Name Priority Date/Time Associated Diagnosis Comments DIAGNOSTIC MAMMOGRAM BILATERAL W LINDA Schedule Routine, Read Routine (OP Routine) 07/22/2023 4:25 PM RN SOCIAL SERVICES Mass of left breast, unspecified quadrant Phyllodes tumor of breast from Last 3 Months or Most Recently Relevant to Health Maintenance Results * Diagnostic Mammogram Bilateral W Linda (07/22/2023 4:25 PM RN SOCIAL SERVICES) Anatomical Region Laterality Modality Breast Bilateral Mammography 07/22/2023 4:32 PM RN SOCIAL SERVICES Impressions 07/22/2023 5:17 PM RN SOCIAL SERVICES 1. A 0.8 cm area of heterogeneous tissue with subtle distortion at the 6 o'clock position, 1 cm from the nipple on ultrasound is of moderate suspicion for malignancy. Recommend ultrasound-guided biopsy. 2. An area of heterogeneous tissue measuring 1.9 cm at the 1:30 position, 4 cm from the nipple corresponds to the area of palpable concern in the LEFT breast and appears overall likely similar to other areas of heterogeneous benign tissue in the LEFT breast. Management of this area can be determined based on pathology of the biopsy at the 6 o'clock position, 1 cm in the LEFT breast. If this biopsy is benign, recommend six-month follow-up ultrasound of this finding at the 1:30 position in the LEFT breast. Pending pathology results, breast MRI could also be performed for further evaluation/problem solving for the LEFT breast 1:30 position finding. 3. No suspicious mammographic abnormality in the right breast. The method of initial detection of finding was patient-reported clinical symptom (Pat). OVERALL FINAL ASSESSMENT: SUSPICIOUS. BI-RADS Category 4B: Moderate suspicion for malignancy. RECOMMENDATION: Recommend ultrasound-guided biopsy of heterogeneous area of subtle distortion seen on ultrasound in the LEFT breast at 6 o'clock position, 1 cm from the nipple. Recommend management of the focal area of heterogeneous tissue at the 1:30 position at the area of palpable concern in the LEFT breast to be determined based on pathology results as detailed above. Dr. Boogie discussed the above findings and recommendations with the patient. She has been scheduled to return to the [facility] for biopsy on 07/29/2022 at 9:00 AM. This facility will contact the referring clinician's office for an order. Dictated by: Nikita Martin M.D. The radiology attending physician has personally reviewed this study, and had reviewed and/or edited this written report and agrees with it. Electronically signed by: Katina Boogie M.D. Narrative 07/22/2023 5:17 PM RN SOCIAL SERVICES EXAMINATION: BILATERAL DIGITAL DIAGNOSTIC MAMMOGRAM INCLUDING CAD AND BILATERAL DIGITAL BREAST TOMOSYNTHESIS; LEFT BREAST SONOGRAM HISTORY: 37-year-old woman with palpable left breast lump June 2023. 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 The patient also has a history of gastric sleeve surgery about 4 years ago, after which she lost weight but she reports she has not lost any weight and the interval between now and her mammogram from 06/20/2021. She is not currently on any medications and denies any changes in medications between now and her most recent mammogram. She also reports LEFT nipple pain without nipple discharge. COMPARISON: Multiple prior studies, most recently 08/07/2021 and dating back to 06/29/2018. TECHNIQUE: Full field digital mammographic views of BOTH breasts were performed, including computer aided detection (CAD) and BILATERAL digital breast tomosynthesis (DBT). Directed ultrasound evaluation of the LEFT breast was performed by a trained pin worker and by Dr. Boogie. BREAST PARENCHYMAL COMPOSITION: The breasts are heterogenously dense, which may obscure small masses. MAMMOGRAM FINDINGS: There is slight interval diffuse increase in breast density bilaterally as compared to most recent prior mammograms. Focal asymmetries in the posterior lower outer and middle lower central LEFT breast partially efface with spot compression. There is an asymmetry best seen on the spot compression tangential view directly posterior to the triangle skin marker, which likely corresponds the finding seen on subsequent ultrasound at the palpable site of concern. This asymmetry appears slightly developed as compared to prior, but the increased density in this area appears similar to other areas of increased density throughout BOTH breasts. Stable postsurgical changes of right breast excisional biopsy. No new suspicious mammographic abnormality in the right breast. SONOGRAM FINDINGS: Targeted ultrasound of the LEFT breast was performed. Left breast 1:30, 4 cm from the nipple in the area of palpable concern, there is a 1.9 cm area of heterogeneous tissue without significant associated vascularity or significant posterior features. There are additional similar-appearing heterogeneous areas of tissue throughout the adjacent LEFT breast on ultrasound , for example at the 6 o'clock position, 4 cm from the nipple and throughout the remainder of the lower outer LEFT breast in the areas of questioned focal asymmetries on the mammogram. At the 4 o'clock position in the subareolar LEFT breast, there is a 0.7 x 0.4 x 0.8 cm parallel circumscribed oval hypoechoic mass without internal vascularity or significant posterior features, slightly overall decreased in size from 1.0 x 0.6 x 0.5 cm, and therefore considered benign. The subareolar LEFT breast was also evaluated given the patient's symptoms of nipple pain. At the 6 o'clock position, 1 cm from the nipple, there is a 0.8 x 0.7 x 0.6 cm heterogeneous area of possible dense tissue, which overall appears similar to other adjacent areas of dense heterogeneous tissue including the area of palpable concern, however this area at the 6 o'clock position, 1 cm from the nipple appears possibly slightly distorted. There is no other suspicious sonographic abnormality in the subareolar LEFT breast. Focused ultrasound of the contralateral RIGHT breast was performed for comparison and demonstrates heterogeneous tissue at the 7 o'clock position, 4 cm from the nipple which is felt to be overall likely similar in appearance to dense tissue seen in the contralateral LEFT breast. Procedure Note Katina Boogie MD - 07/22/2023 EXAMINATION: BILATERAL DIGITAL DIAGNOSTIC MAMMOGRAM INCLUDING CAD AND BILATERAL DIGITAL BREAST TOMOSYNTHESIS; LEFT BREAST SONOGRAM HISTORY: 37-year-old woman with palpable left breast lump June 2023. 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 The patient also has a history of gastric sleeve surgery about 4 years ago, after which she lost weight but she reports she has not lost any weight and the interval between now and her mammogram from 06/20/2021. She is not currently on any medications and denies any changes in medications between now and her most recent mammogram. She also reports LEFT nipple pain without nipple discharge. COMPARISON: Multiple prior studies, most recently 08/07/2021 and dating back to 06/29/2018. TECHNIQUE: Full field digital mammographic views of BOTH breasts were performed, including computer aided detection (CAD) and BILATERAL digital breast tomosynthesis (DBT). Directed ultrasound evaluation of the LEFT breast was performed by a trained pin worker and by Dr. Boogie. BREAST PARENCHYMAL COMPOSITION: The breasts are heterogenously dense, which may obscure small masses. MAMMOGRAM FINDINGS: There is slight interval diffuse increase in breast density bilaterally as compared to most recent prior mammograms. Focal asymmetries in the posterior lower outer and middle lower central LEFT breast partially efface with spot compression. There is an asymmetry best seen on the spot compression tangential view directly posterior to the triangle skin marker, which likely corresponds the finding seen on subsequent ultrasound at the palpable site of concern. This asymmetry appears slightly developed as compared to prior, but the increased density in this area appears similar to other areas of increased density throughout BOTH breasts. Stable postsurgical changes of right breast excisional biopsy. No new suspicious mammographic abnormality in the right breast. SONOGRAM FINDINGS: Targeted ultrasound of the LEFT breast was performed. Left breast 1:30, 4 cm from the nipple in the area of palpable concern, there is a 1.9 cm area of heterogeneous tissue without significant associated vascularity or significant posterior features. There are additional similar-appearing heterogeneous areas of tissue throughout the adjacent LEFT breast on ultrasound , for example at the 6 o'clock position, 4 cm from the nipple and throughout the remainder of the lower outer LEFT breast in the areas of questioned focal asymmetries on the mammogram. At the 4 o'clock position in the subareolar LEFT breast, there is a 0.7 x 0.4 x 0.8 cm parallel circumscribed oval hypoechoic mass without internal vascularity or significant posterior features, slightly overall decreased in size from 1.0 x 0.6 x 0.5 cm, and therefore considered benign. The subareolar LEFT breast was also evaluated given the patient's symptoms of nipple pain. At the 6 o'clock position, 1 cm from the nipple, there is a 0.8 x 0.7 x 0.6 cm heterogeneous area of possible dense tissue, which overall appears similar to other adjacent areas of dense heterogeneous tissue including the area of palpable concern, however this area at the 6 o'clock position, 1 cm from the nipple appears possibly slightly distorted. There is no other suspicious sonographic abnormality in the subareolar LEFT breast. Focused ultrasound of the contralateral RIGHT breast was performed for comparison and demonstrates heterogeneous tissue at the 7 o'clock position, 4 cm from the nipple which is felt to be overall likely similar in appearance to dense tissue seen in the contralateral LEFT breast. IMPRESSION: 1. A 0.8 cm area of heterogeneous tissue with subtle distortion at the 6 o'clock position, 1 cm from the nipple on ultrasound is of moderate suspicion for malignancy. Recommend ultrasound-guided biopsy. 2. An area of heterogeneous tissue measuring 1.9 cm at the 1:30 position, 4 cm from the nipple corresponds to the area of palpable concern in the LEFT breast and appears overall likely similar to other areas of heterogeneous benign tissue in the LEFT breast. Management of this area can be determined based on pathology of the biopsy at the 6 o'clock position, 1 cm in the LEFT breast. If this biopsy is benign, recommend six-month follow-up ultrasound of this finding at the 1:30 position in the LEFT breast. Pending pathology results, breast MRI could also be performed for further evaluation/problem solving for the LEFT breast 1:30 position finding. 3. No suspicious mammographic abnormality in the right breast. The method of initial detection of finding was patient-reported clinical symptom (Pat). OVERALL FINAL ASSESSMENT: SUSPICIOUS. BI-RADS Category 4B: Moderate suspicion for malignancy. RECOMMENDATION: Recommend ultrasound-guided biopsy of heterogeneous area of subtle distortion seen on ultrasound in the LEFT breast at 6 o'clock position, 1 cm from the nipple. Recommend management of the focal area of heterogeneous tissue at the 1:30 position at the area of palpable concern in the LEFT breast to be determined based on pathology results as detailed above. Dr. Boogie discussed the above findings and recommendations with the patient. She has been scheduled to return to the [facility] for biopsy on 07/29/2022 at 9:00 AM. This facility will contact the referring clinician's office for an order. Dictated by: Nikita Martin M.D. The radiology attending physician has personally reviewed this study, and had reviewed and/or edited this written report and agrees with it. Electronically signed by: Katina Boogie M.D. Result [facility] Yamilka Robertson NP IMG MAMMO PROCEDURES Final Result from Last 3 Months or Most Recently Relevant to Health Maintenance [place] [address] [address] [place] [address] [employer] [place] [employer] [place] Care Teams Portable Machine Cutter Relationship Specialty Start Date End Date No, Physician PCP - General 12/10/23
--- OUTSIDE RECORDS SUMMARY | 2024-12-19 18:39 | XMS_ITS | CONTINUITY OF CARE DOCUMENT ---
Author Name sidney little Address Unknown Organization [facility] Address [address] [place] [address] Phone [phone] Care Team Providers Care Double Bass Player Name Role Phone Chris Mojica MD Unavailable ADARSH SARAVIA MD Unavailable ADARSH SARAVIA MD Unavailable [phone] PROBLEMS Condition Status Date Provider Notes Palpitation active Alicia Spann CHEST PAIN-TYPE TO BE DETERMINED completed - Jordi Warren MD DVT active Chris Mojica MD OBESITY active Chris Mojica MD HTN essential active Jordi Warren MD Sinus tachycardia active Jordi Warren MD Near Syncope active Jordi Warren MD ENCOUNTERS Date Type Provider Location Encounter Diag nosis - In-person encounter Office Visit Jordi Warren MD [place] [facility] - In-person encounter Office Visit Jordi Warren MD [place] [facility] Near Syncope - In-person encounter Office Visit Jordi Warren MD [place] [facility] CHEST PAIN-TYPE TO BE DETERMINEDHTN essentialSinus tachycardia - In-person encounter Office Visit Chris Mojica MD [place] [facility] - In-person encounter Office Visit Chris Mojica MD [place] [facility] DVTOBESITY VITAL SIGNS Date Observation Value Provider Body Mass Index (Ratio) 32.51 kg/m2 Florian Warren MD blood pressure, diastolic 70 mm[Hg] To sen Warren MD blood pressure, systolic 100 mm[Hg] [place] Warren MD weight E&M 189.4 [lb_av] Jordi Quinteros Body Mass Index (Ratio) 34.84 kg/m2 Florian Warren MD pulse rate 112 /min Kristi O'Pa blood pressure, diastolic 70 mm[Hg] Neto caaljuli O'Pa blood pressure, systolic 100 mm[Hg] Haley asher O'Pa respiratory rate E&M 16 /min Kristi O'Pa oxygen saturation, oximetry 98 % Kristi O'Pa weight E&M 203 [lb_av] Kristi O'Pa height E&M 64 [in_i] [facility] O'Pa Body Mass Index (Ratio) 40.02 kg/m2 Florian Warren MD blood pressure, resting Yes Latasha Moreira blood pressure, diastolic 89 mm[Hg] Neto Moreira blood pressure, systolic 144 mm[Hg] Haley Flowersmeleciokimber Harish oxygen saturation, oximetry 98 % Wes Moreira respiratory rate E&M 18 /min Krista Moreira pulse rate 106 /min Wes Royce viridiana weight E&M 233.2 [lb_av] Wes Eb on height E&M 64 [in_i] Wes Steve viridiana pulse rate 96 /min Meri Bello oxygen saturation, oximetry 96 % Meri Bello blood pressure, diastolic, supine 81 mm[H g] Meri Bello blood pressure, systolic, supine E&M 124 mm[Hg] Meri Bello respiratory rate E&M 18 /min Meri pickens blood pressure, diastolic 89 mm[Hg] Himanshu Machado RN blood pressure, systolic 140 mm[Hg] Suleman Machado RN pulse rate 90 /min Suleman Machado RN oxygen saturation, oximetry 93 % Suleman Machado RN respiratory rate E&M 20 /min Suleman Zafar landa RN weight E&M 242 [lb_av] Suleman Machado RN ALLERGIES Allergy Name Onset Date Reaction Criticality Status BANANA High Criticality active AVACODO High Criticality active LATEX High Criticality active PERCOCET High Criticality active HISTORY OF MEDICATION USE Medication Status Instructions Dates Provider Indications Com ments TYLENOL CAPSULE active as needed Wes Moreira PROCARDIA XL 60 MG ORAL TABLET EXTENDED RELEASE 24 HOUR completed one per day - Kristi Krishnamurthy PEPCID 20 MG ORAL TABLET completed once daily - Wes Moreira ATENOLOL 25 MG ORAL TABLET completed ONE TAB. DAILY - Wes Moreira LOESTRIN 24 FE TABS completed as directed - Wes Moreira SOCIAL HISTORY Date Observation Value Provider social history reviewed E&M revi ewed - no changes required Jordi Warren MD social history E&M Lives with wai cotton/friends E thnicity: Smoking History: Sammy pugh is a former smoker. Jordi Warren MD social history reviewed E&M revi ewed - no changes required Jordi Warren MD cigarette use yes Kristi Diana'Pa smoking status Former smoker Kristi Diana'More l social history reviewed E&M revi ewed - no changes required Jordi Warren MD physical exercise, frequency, days per week no Wes Moreira alcohol use, average drinks per day social basis only Wes Moreira caffeine use, averag e drinks per day yes Wes Moreira drug use none Wes kemp smoking status Never smoker Wes Hernandez social history reviewed E&M reviewed Chris Mojica MD social history E&M L nydia with family/friends E thnicity: Chris Mojica MD drug use none Chris Mojica MD social history reviewed E&M reviewed Chris Mojica MD physical exercise, frequency, days per week no [employer] caffeine use, averag e drinks per day yes [employer] alcohol use, average drinks per day social basis only [employer] smoking status Non-smoker [employer] MENTAL STATUS Date Observation Value Provider assessment of judgme nt and insight E&M Alert and oriented to time, place and person. Mood and affect are normal. Chris Mojica MD assessment of judgme nt and insight E&M Alert and oriented to time, place and person. Mood and affect are normal. Suleman Machado RN FAMILY HISTORY Family Member Condition Mother Family History Unkno wn Father Family History of Co ronary Artery Disease: INSURANCE PROVIDERS Payer name Policy type / Coverage type [place] red democrat ID [facility] [id number] [employer] insurance [place] [id number] ADVANCE DIRECTIVES Name Date DISCUSSED - NO DECISION MADE TREATMENT PLAN Date Name Performer Cardiology Jordi Warren MD Cardiology Jordi Warren MD Cardiology Jordi Warren MD Cardiology Jordi Warren MD Cardiology Jordi Warren MD Cardiology Jordi Warren MD Cardiology Jordi Warren MD Cardiology Jordi Warren MD Cardiology Jordi Warren MD Cardiology Jordi Warren MD Cardiology Jordi Warren MD Cardiology Jordi Warren MD FU LEG PAIN:stopped ocp due to i ssue of dvt. Chris Mojica MD FU LEG PAIN: H er updated medication list for this problem includes: Atenolol 25 Mg Tabs (Atenolol) ..... One tab. daily s tress was negative. n on cardiac chest pain. Chris Mojica MD NEW PATIENT VISIT:asked to lose weight. Chris Mojica MD NEW PATIENT VISIT:i have asked her to stop her control pills as they would cause a higher chance of dvt/pe. Chris Mojica MD NEW PATIENT VISIT: H er updated medication list for this problem includes: Atenolol 25 Mg Tabs (Atenolol) ..... One tab. daily s he has had a pe in the past. she says she was at [facility]. will check a ct angio and then check a echo and stress thall. w ill also check a lower extremity. had ct angio yesterday and will get reports. Orders: C omplete Echo ([id number]) Chris Mojica MD Date Name Complete Echo Complete Echo HISTORY OF PROCEDURES Procedure Date Procedure Name Provider Procedure Notes S tatus EKG Jordi Warren MD completed RUBI Mojica MD co mpleted EKG Suleman Machado RN completed
--- OUTSIDE RECORDS SUMMARY | 2024-12-19 18:39 | XMS_ITS | Encounter Summary ---
Author Organization [facility] Address [address] [place] [address] Care Team Providers Care Body Make Up Artist Name Role Phone Jace Hirsch MD Primary Care Provider [phone] Encounter Details Date Type Department Care Team (Late st Contact Info) Description 10/09/2018 Ophth Exam [facility] [address] [place] [address] Eugene Hirsch MD [address] DEPT [place] [address] Social History Tobacco Use Types Packs/Day Years Used Date Smoking Tobacco: Never Smokeless Tobacco: Never Alcohol Use Standard Drinks/Week Comments No 0 (1 standard drink = 0.6 oz pur e alcohol) Comments No Sex and Gender Information Value Date Recorded Sex Assigned at Not on file 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
--- OUTSIDE RECORDS SUMMARY | 2024-12-19 18:39 | XMS_ITS | Referral Summary ---
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 [employer] Gender Identity Not on file Sexual Orientation Not on file Last Filed Vital Signs Vital Sign Reading [...] 12/10/2023 4:14 PM CDT Plan of Treatment Not on file Procedures Procedure Name Priority Date/Time Associated Diagnosis Comments DIAGNOSTIC MAMMOGRAM BILATERAL W CORDELL Schedule Routine, Read Routine (OP Routine) 07/22/2023 4:25 PM CONSTRUCTION SITE MANAGER Mass of left breast, unspecified quadrant Phyllodes tumor of breast from Last 3 Months or Most Recently Relevant to Health Maintenance Results * Diagnostic Mammogram Bilateral W Cordell (07/22/2023 4:25 PM CONSTRUCTION SITE MANAGER) Anatomical Region Laterality Modality Breast Bilateral Mammography 07/22/2023 4:32 PM CONSTRUCTION SITE MANAGER Impressions 07/22/2023 5:17 PM CONSTRUCTION SITE MANAGER 1. A 0.8 cm area of heterogeneous [...] has been scheduled to return to the [facility] for biopsy on 07/29/2022 at 9:00 AM. This facility will contact the referring clinician's office for an order. Dictated by: Nikita Martin M.D. The radiology attending physician has personally reviewed this study, and had reviewed and/or edited this written report and agrees with it. Electronically signed by: Katina Boogie M.D. Narrative 07/22/2023 5:17 PM CONSTRUCTION SITE MANAGER EXAMINATION: BILATERAL DIGITAL DIAGNOSTIC MAMMOGRAM INCLUDING CAD [...] LEFT breast was performed by a trained mold repairer and by Dr. Boogie. BREAST PARENCHYMAL COMPOSITION: [...] LEFT breast was performed by a trained mold repairer and by Dr. Boogie. BREAST PARENCHYMAL COMPOSITION: [...] has been scheduled to return to the [facility] for biopsy on 07/29/2022 at 9:00 AM. This facility will contact the referring clinician's office for an order. Dictated by: Nikita Martin M.D. The radiology attending physician has personally reviewed this study, and had reviewed and/or edited this written report and agrees with it. Electronically signed by: Katina Boogie M.D. Yamilka Robertson NP IMG MAMMO PROCEDURES Final Result from Last 3 Months or Most Recently Relevant to Health Maintenance Insurance [email or web address] [email or web address] | [employer] [place] [facility] Care Teams Performance Consultant Relationship Specialty Start Date End Date No, Physician PCP - General 12/10/23"
--- OUTSIDE RECORDS SUMMARY | 2024-12-19 18:39 | XMS_ITS | Data Portability ---
Author Organization [facility] Address [address] [place] [address] Care Team Providers Care Measurement Analyst Name Role Phone ADARSH HIRSCH Primary Care Provider Assessment Encounter Date Assessment Date Assessment LastModified by Organization Details LastModified Time 07/20/2024 07/20/2024 obtain her old records CBC CMP lipid T3-T4 TSH start venlafaxine ER 37.5 mg daily BuSpar 5 mg b.i.d. obtain a mammogram report she will follow up with me in 1 month. She can use an uszl-zjd-cosrtk r proton pump inhibitor such as omeprazole her GI symptoms have been for the better part of a year with no change in character or intensity or frequency [email or web address] Not available 07/24/2024 21:07:23 08/25/2024 08/25/2024 continue current therapy medication refills follow up 6 months [email or web address] Not available 08/25/2024 22:06:17 10/19/2024 10/19/2024 Medrol Dosepak quitting tobacco care instructions BuSpar for anxiety after the Dosepak if she is not better she will call [email or web address] Not available 10/28/2024 23:12:51 Plan of Treatment Reminders Order Date Submit Date Provider Last Modified By Organization Details Last Modified Time Details Appointments ANY 15 2024 03:15P Gris Hirsch MD Not available Not available Not available Lab CMP, serum or plasma 2024 025 [facility], [address] [place] [address], [place], [address], 07/21/2024 08:26:29 lipid panel, serum 2024 025 [facility], [address] [facility], [place], [address], 07/21/2024 08:26:28 CBC w/ auto diff 2024 025 [facility], [address] [facility], [address], [place], [address], 07/21/2024 08:26:30 TSH + free T4, serum 2024 025 [facility], [address] [facility], [place], [address], 07/21/2024 08:26:27 T3, free, serum or plasma 2024 025 [facility], [address] [facility], [facility] [address], [place], [address], 07/21/2024 08:26:32 Referral gyneco logist referr al 2024 025 dipak Pepper MD, [address], [address], [place], [address], 12/01/2024 13:33:16 Procedures None record ed. Surgeries None record ed. Imaging electr ocardi ogram 2024 025 [id number] In-Office Order, Internal Use Only DO Not Attach Compendium DO Not Attach Compendium, Do Not Delete/merge, [id number] 07/20/2024 17:47:47 Medication Orders Medrol (Todd) 4 mg tablet s in a dose pack 2024 025 [email or web address] [facility], [address] [facility], [place], [place], [id number], 10/19/2024 17:22:11 buspir one 5 mg tablet 2024 025 [place] [address] [facility] #44660, [address] [place], [place], [id number], 10/19/2024 17:22:11 venlaf axine ER 37.5 mg capsul e,exte nded releas e 24 hr 2024 025 [facility] #13446, [address] [place], [place], [id number], 09/06/2024 17:48:33 buspir one 5 mg tablet [address] [facility] #98620, [address] [place], [place], [id number], 08/25/2024 21:41:23 venlaf axine ER 37.5 mg capsul e,exte nded releas e 24 hr 2024 025 [facility] #73907, [address] [place], [place], [id number], 09/06/2024 17:48:33 buspir one 5 mg tablet [address] [facility] #67019, [address] [place], [place], [id number], 07/20/2024 17:47:47 Patient TargetsNo targets recorded. Patient Instructions Encounter Date Encounter Id Patient Instructions Last Modified By Organization Details Last Modified Time 07/20/2024 [id number] A healthy lifestyle: care instructions [email or web address] Not available 07/20/2024 15:20:00 10/19/2024 [id number] A healthy lifestyle: care instructions [email or web address] Not available 10/19/2024 15:34:47 Quitting Tobacco : Care Instructions [email or web address] Not available 10/19/2024 15:34:47 Reason for Referral Insurance Administrator Referral for Gy necologic examination Referring Physician: Adarsh Hirsch, Internal Medicine, Encounter Date: 08/25/2024 Results Created Date Observation Date Name Description Value Unit Range Abnormal Flag Note LastModifiedBy Organization Detail LastModifiedTime 07/20/1907/21/2024 TSH+F REE T4 TSH 2.150 uIU/m L 0.450- 4.500 Not Available [facility] ([facility]) [address] [place], [address], 07/21/2024 08:26:27 07/20/1907/21/2024 TSH+F REE T4 T4,free(dire ct) 0.93 NG/dL 0.82-1 .77 Not Available [facility] ([facility]) [address] [place], [address], 07/21/2024 08:26:27 07/20/19 25 07/21/2024 LIPID PANEL cholesterol, total 174 mg/dL 100-19 9 Not Available [facility] ([facility]) [address] [place], [address], 07/21/2024 08:26:28 07/20/19 25 07/21/2024 LIPID PANEL triglyceride s 76 mg/dL 0-149 Not Available [facility] ([facility]) [address] [place], [address], 07/21/2024 08:26:28 07/20/19 25 07/21/2024 LIPID PANEL HDL cholesterol 82 mg/dL >39 Not Available [facility] ([facility]) [address] [place], [address], 07/21/2024 08:26:28 07/20/19 25 07/21/2024 LIPID PANEL VLDL cholesterol jimmy 14 mg/dL 5-40 Not Available [facility] ([facility]) [address] [place], [address], 07/21/2024 08:26:28 07/20/19 25 07/21/2024 LIPID PANEL LDL chol calc ([facility]) 78 mg/dL 0-99 Not Available [facility] ([facility]) [address] [facility] [place], [address], 07/21/2024 08:26:28 07/20/19 25 07/21/2024 COMP. METAB OLIC PANEL (14) glucose 73 mg/dL 70-99 Not Available [facility] ([facility]) [address] [facility] [place], [address], 07/21/2024 08:26:29 07/20/19 25 07/21/2024 COMP. METAB OLIC PANEL (14) BUN 13 mg/dL 6-24 Not Available [facility] ([facility]) [address] [facility] [place], [address], 07/21/2024 08:26:29 07/20/19 25 07/21/2024 COMP. METAB OLIC PANEL (14) creatinine 0.75 mg/dL 0.57-1 .00 Not Available [facility] ([facility]) [address] [facility], [place], [address], 07/21/2024 08:26:29 07/20/19 25 07/21/2024 COMP. METAB OLIC PANEL (14) eGFR 103 mL/mi n/1.7 3 >59 Not Available [facility] ([facility]) [address] [facility] [place], [address], 07/21/2024 08:26:29 07/20/19 25 07/21/2024 COMP. METAB OLIC PANEL (14) BUN/creatini ne ratio 17 9-23 Not Available [facility] ([facility]) [address] [facility] [place], [address], 07/21/2024 08:26:29 07/20/19 25 07/21/2024 COMP. METAB OLIC PANEL (14) sodium 140 mmol/ L 134-14 4 Not Available [facility] ([facility]) [address] [facility] [place], [address], 07/21/2024 08:26:29 07/20/19 25 07/21/2024 COMP. METAB OLIC PANEL (14) potassium 4.6 mmol/ L 3.5-5. 2 Not Available [facility] ([facility]) [address] [facility] [place], [address], 07/21/2024 08:26:29 07/20/19 25 07/21/2024 COMP. METAB OLIC PANEL (14) chloride 103 mmol/ L 96-106 Not Available [facility] ([facility]) [address] [facility] [place], [address], 07/21/2024 08:26:29 07/20/19 25 07/21/2024 COMP. METAB OLIC PANEL (14) carbon dioxide, total 25 mmol/ L 20-29 Not Available [facility] ([facility]) [address] [facility] [place], [address], 07/21/2024 08:26:29 07/20/19 25 07/21/2024 COMP. METAB OLIC PANEL (14) calcium 9.4 mg/dL 8.7-10 .2 Not Available [facility] ([facility]) [address] [facility] [place], [address], 07/21/2024 08:26:29 07/20/19 25 07/21/2024 COMP. METAB OLIC PANEL (14) protein, total 6.9 g/dL 6.0-8. 5 Not Available [facility] ([facility]) [address] [facility] [place], [address], 07/21/2024 08:26:29 07/20/19 25 07/21/2024 COMP. METAB OLIC PANEL (14) albumin 4.4 g/dL 3.9-4. 9 Not Available [facility] ([facility]) [address] [facility] [place], [address], 07/21/2024 08:26:29 07/20/19 25 07/21/2024 COMP. METAB OLIC PANEL (14) globulin, total 2.5 g/dL 1.5-4. 5 Not Available [facility] ([facility]) [address] [facility] [place], [address], 07/21/2024 08:26:29 07/20/19 25 07/21/2024 COMP. METAB OLIC PANEL (14) bilirubin, total 0.2 mg/dL 0.0-1. 2 Not Available [facility] ([facility]) [address] [facility] [place], [address], 07/21/2024 08:26:29 07/20/19 25 07/21/2024 COMP. METAB OLIC PANEL (14) alkaline phosphatase 52 IU/L 44-121 Not Available [facility] ([facility]) [address] [facility], [place], [address], 07/21/2024 08:26:29 07/20/19 25 07/21/2024 COMP. METAB OLIC PANEL (14) AST (SGOT) 22 IU/L 0-40 Not Available [facility] ([facility]) [address] [facility] [place], [address], 07/21/2024 08:26:29 07/20/19 25 07/21/2024 COMP. METAB OLIC PANEL (14) ALT (SGPT) 14 IU/L 0-32 Not Available [facility] ([facility]) [address] [place], [address], 07/21/2024 08:26:29 07/20/19 25 07/21/2024 CBC WITH DIFFE RENTI AL/PL ATELE T WBC 4.3 x10e3 /uL 3.4-10 .8 Not Available [facility] ([facility]) [address] [place], [address], 07/21/2024 08:26:30 07/20/19 25 07/21/2024 CBC WITH DIFFE RENTI AL/PL ATELE T RBC 4.58 x10e6 /uL 3.77-5 .28 Not Available [facility] ([facility]) [address] [place], [address], 07/21/2024 08:26:30 07/20/19 25 07/21/2024 CBC WITH DIFFE RENTI AL/PL ATELE T hemoglobin 13.5 g/dL 11.1-1 5.9 Not Available [facility] ([facility]) [address] [place], [address], 07/21/2024 08:26:30 07/20/1907/21/2024 CBC WITH DIFFE RENTI AL/PL ATELE T hematocrit 40.8 % 34.0-4 6.6 Not Available [facility] ([facility]) [address] [facility], [place], [address], 07/21/2024 08:26:30 07/20/1907/21/2024 CBC WITH DIFFE RENTI AL/PL ATELE T MCV 89 fL 79-97 Not Available [facility] ([facility]) [address] [place], [address], 07/21/2024 08:26:30 07/20/1907/21/2024 CBC WITH DIFFE RENTI AL/PL ATELE T MCH 29.5 pg 26.6-3 3.0 Not Available [facility] ([facility]) [address] [place], [address], 07/21/2024 08:26:30 07/20/1907/21/2024 CBC WITH DIFFE RENTI AL/PL ATELE T MCHC 33.1 g/dL 31.5-3 5.7 Not Available [facility] ([facility]) [address] [place], [address], 07/21/2024 08:26:30 07/20/19 25 07/21/2024 CBC WITH DIFFE RENTI AL/PL ATELE T RDW 12.8 % 11.7-1 5.4 Not Available [facility] ([facility]) [address] [facility], [place], [address], 07/21/2024 08:26:30 07/20/19 25 07/21/2024 CBC WITH DIFFE RENTI AL/PL ATELE T platelets 220 x10e3 /uL 150-45 0 Not Available [facility] ([facility]) [address] [facility], [place], [address], 07/21/2024 08:26:30 07/20/19 25 07/21/2024 CBC WITH DIFFE RENTI AL/PL ATELE T neutrophils 60 % notest ab. Not Available [facility] ([facility]) [address] [facility], [place], [address], 07/21/2024 08:26:30 07/20/19 25 07/21/2024 CBC WITH DIFFE RENTI AL/PL ATELE T lymphs 29 % notest ab. Not Available [facility] ([facility]) [address] [facility], [place], [address], 07/21/2024 08:26:30 07/20/19 25 07/21/2024 CBC WITH DIFFE RENTI AL/PL ATELE T monocytes 9 % notest ab. Not Available [facility] ([facility]) [address] [facility], [place], [address], 07/21/2024 08:26:30 07/20/1907/21/2024 CBC WITH DIFFE RENTI AL/PL ATELE T eos 1 % notest ab. Not Available [facility] ([facility]) [address] [place], [address], 07/21/2024 08:26:30 07/20/19 25 07/21/2024 CBC WITH DIFFE RENTI AL/PL ATELE T basos 1 % notest ab. Not Available [facility] ([facility]) [address] [facility], [place], [address], 07/21/2024 08:26:30 07/20/1907/21/2024 CBC WITH DIFFE RENTI AL/PL ATELE T neutrophils (absolute) 2.6 x10e3 /uL 1.4-7. 0 Not Available [facility] ([facility]) [address] [facility], [place], [address], 07/21/2024 08:26:30 07/20/1907/21/2024 CBC WITH DIFFE RENTI AL/PL ATELE T lymphs (absolute) 1.2 x10e3 /uL 0.7-3. 1 Not Available [facility] ([facility]) [address] [place], [address], 07/21/2024 08:26:30 07/20/19 25 07/21/2024 CBC WITH DIFFE RENTI AL/PL ATELE T monocytes(ab solute) 0.4 x10e3 /uL 0.1-0. 9 Not Available [facility] ([facility]) [address] [place], [address], 07/21/2024 08:26:30 07/20/1907/21/2024 CBC WITH DIFFE RENTI AL/PL ATELE T eos (absolute) 0.0 x10e3 /uL 0.0-0. 4 Not Available [facility] ([facility]) [address] [facility], [place], [address], 07/21/2024 08:26:30 07/20/1907/21/2024 CBC WITH DIFFE RENTI AL/PL ATELE T baso (absolute) 0.0 x10e3 /uL 0.0-0. 2 Not Available [facility] ([facility]) [address] [place], [address], 07/21/2024 08:26:30 07/20/19 25 07/21/2024 CBC WITH DIFFE RENTI AL/PL ATELE T immature granulocytes 0 % notest ab. Not Available [facility] ([facility]) [address] [facility], [place], [address], 07/21/2024 08:26:30 07/20/19 25 07/21/2024 CBC WITH DIFFE RENTI AL/PL ATELE T immature grans (abs) 0.0 x10e3 /uL 0.0-0. 1 Not Available [facility] ([facility]) [address] [facility], [place], [address], 07/21/2024 08:26:30 07/20/19 25 07/21/2024 TRIIO DOTHY MARIVEL E (T3), FREE triiodothyro nine (T3), free 2.2 pg/mL 2.0-4. 4 Not Available [facility] ([facility]) [address] [facility], [place], [address], 07/21/2024 08:26:32 07/20/19 elect rocar diogr am No observ ation record ed. BEE In-Office Order Internal Use Only DO Not Attach Compendium DO Not Attach Compendium, Do Not Delete/merge, [id number] 07/20/2024 15:50:34 07/20/1907/20/2024 elect rocar diogr am No observ ation record ed. BARCODE In-Office Order Internal Use Only DO Not Attach Compendium DO Not Attach Compendium, Do Not Delete/merge, [id number] 07/20/2024 16:33:43 Result Notes None recorded. Problems Name Problem SNOMED Code Status Onset Date Resolution Date Notes Provider Name and Address Organization Details Recorded Time Anxiety 48242398 Active 025 ERIN Granados, MART[place] - [facility] 15:57:24 Insomnia 613221019 Active 025 Zully Murrell MA null, [place] - [facility] 15:57:25 Chest pain 08721483 Active 025 ERIN Granados, [place] - [facility] 15:57:26 Problem Notes None recorded. Procedures Surgical History Date Name Laterality Status Provider Name and Address Organization Details Recorded Time 04/12/20 21 partial hysterectomy completed [facility] 07/20/2024 14:43:40 07/13/19 20 spinal fusion of atlantoaxial joint by anterior approach completed [facility] 07/20/2024 14:45:23 07/13/19 20 primary posterior decompression of lumbar spinal cord completed [facility] 07/20/2024 14:46:04 09/11/19 19 laparoscopic sleeve gastrectomy completed [facility] 07/20/2024 14:42:51 07/13/19 13 delivery completed [facility] 07/20/2024 14:44:30 07/13/19 10 delivery completed [facility] 07/20/2024 14:44:19 07/13/19 08 delivery completed [facility] 07/20/2024 14:44:01 Imaging Results None recorded. Procedure Notes None recorded. Medical Equipment None Reported. Allergies Allergen ID Allergen Name Allergen Category Reaction Reaction Severity Criticality Documentation Date Start Date Code Code System Note Provider Name and Address Organization Details Recorded Time 18091012 acetamino phen / oxycodone medicatio n Not available Not available Not available 07/20/2024 39928 3 [facility] 14:39:48 Medications Name Sig Start Date Stop Date Status Note LastModified by Organization Details LastModified Time buspirone 5 mg tablet Take 1 tablet twice a day by oral route. 2024 active Not Available Not Available Not Avai lable venlafaxine ER 37.5 mg capsule,ext ended release 24 hr Take 1 capsule every day by oral route. 09/06 completed Not Available Not Available Not Available prednisone 10 mg tablet TAKE 6 TABLETS BY MOUTH ONCE DAILY FOR 5 DAYS THEN 4 ONCE DAILY FOR 5 DAYS THEN 2 ONCE DAILY FOR 5 DAYS THEN 1 ONCE DAILY FOR 5 DAYS THEN 1/2 (ONE-HALF ) ONCE DAILY FOR 5 DAYS 07/20 completed Not Available Not Available Not Available cetirizine 10 mg tablet TAKE 2 TABLETS BY MOUTH ONCE DAILY active Not Available Not Available No t Available ofloxacin 0.3 % eye drops INSTILL 2 DROP INTO AFFECTED EYE(S) BY OPHTHALMI C ROUTE 4 TIMES PER DAY x1 WEEK active Not Available Not Available No t Available prednisone 20 mg tablet TAKE 3 TABLETS BY MOUTH DAILY FOR 5 DAYS 07/20 completed Not Available Not Available Not Available triamcinolo ne acetonide 0.1 % topical ointment APPLY TOPICALLY TO THE AFFECTED AREA TWICE DAILY FOR 10 DAYS 07/20 completed Not Available Not Available Not Available epinephrine 0.3 mg/0.3 mL injection, auto-inject or INJECT SINGLE DOSE IN THE MUSCLE NEEDED. MAY REPEAT ONCE. active Not Available Not Available No t Available methylpredn isolone 4 mg tablets in a dose pack FOLLOW PACKAGE DIRECTION S active Not Available Not Available No t Available hydroxyzine HCl 10 mg tablet TAKE 1 TABLET BY MOUTH NIGHTLY NEEDED FOR ITCHING 07/20 completed Not Available Not Available Not Available Xolair 300 mg/2 mL subcutaneou s syringe active Not Available Not Available No t Available Vitals Date Recorded Body height Body mass index (BMI) Body weight Heart rate Oxygen saturation Oxygen saturation in Arterial blood by Pulse oximetry Systolic blood pressure Diastolic blood pressure Provider Name and Address Organization Details Last Updated DateTime 5 162.56 cm 28.8 kg/m2 23634.4 4 g 99 /min 98 % 98 % 114 mm[Hg] 78 mm[Hg] Silvia Ventura MA [facility] 5 14:39:25 Date Recorded Body height Body mass index (BMI) Body weight Heart rate Oxygen saturation Oxygen saturation in Arterial blood by Pulse oximetry Systolic blood pressure Diastolic blood pressure Provider Name and Address Organization Details Last Updated DateTime 5 162.56 cm 28.9 kg/m2 53776.9 6 g 97 /min 98 % 98 % 122 mm[Hg] 88 mm[Hg] Kirsty Herrmann MA [facility] 5 16:56:23 Date Recorded Body height Body mass index (BMI) Body weight Heart rate Oxygen saturation Oxygen saturation in Arterial blood by Pulse oximetry Systolic blood pressure Diastolic blood pressure Provider Name and Address Organization Details Last Updated DateTime 5 162.56 cm 30.1 kg/m2 22760.7 4 g 85 /min 98 % 98 % 122 mm[Hg] 64 mm[Hg] Elida Maguire MA [place] - [facility] 15:34:40 Social History Question Answer Notes LastModified by Organizat ion Details LastModified Time Tobacco Smoking Status Current Every Day Smoker Silvia Ventura MA null, [place] - [facility] 07/20/2024 14:42:05 Do You Have An Advance Directive? No Information not available 07/20/2024 Are You Blind Or Do You Have Difficulty Seeing? No Information not available 07/20/2024 What Is Your Level Of Caffeine Consumption? Occasional Information not available 07/20/2024 In The 14 Days Before Symptom Onset, Have You Had Close Contact With A Laboratory-confir med COVID-19 While That Case Was Ill? No Information not available 07/20/2024 In The 14 Days Before Symptom Onset, Have You Had Close Contact With A Person Who Is Under Investigation For COVID-19 While That Person Was Ill? No Information not available 07/20/2024 Have You Been To An Area Known To Be High Risk For COVID-19? No Information not available 07/20/2024 Are You Deaf Or Do You Have Serious Difficulty Hearing? No Information not available 07/20/2024 What Type Of Diet Are You Following? REGULAR Information not available 07/20/2024 Are There Any Guns Present In Your Home? No Information not available 07/20/2024 What Was The Date Of Your Most Recent Tobacco Screening? 10/19/2024 Information not available 10/19/2024 What Is Your Current Pack Years? 10packyears Information not available 07/20/2024 What Is Your Relationship Status? Information not available 07/20/2024 Do You Use Your Seat Belt Or Car Seat Routinely? Yes Information not available 07/20/2024 Do You Have Smoke And Carbon Monoxide Detectors In Your Home? Yes Information not available 07/20/2024 Do You Use Sunscreen Routinely? Yes Information not available 07/20/2024 Has Tobacco Cessation Counseling Been Provided? Yes Information not available 07/20/2024 On What Date Was Tobacco Cessation Counseling Provided? 10/19/2024 Information not available 10/19/2024 Sex: Female Functional Status Question Answer Note LastModified by Organizat ion Details LastModified Time Do you use any illicit or recreational drugs? No Information not available 07/20/2024 Do you or have you ever used any other forms of tobacco or nicotine? Yes vape Information not available 07/20/2024 What is your level of alcohol consumption? Occasional Information not available 07/20/2024 Do you or have you ever used smokeless tobacco? Never used smokeless tobacco Information not available 07/20/2024 Are you able to care for yourself? Yes Information not available 07/20/2024 Do you or have you ever used e-cigarettes or vape? Current user of electronic cigarettes Information not available 07/20/2024 Mental Status None recorded. Family History Relationship Description Onset Age of this Age Resolved Age Notes LastModified by Organization Details LastModified Time Father Heart disease [email or web address] Not available 2024 14:41:01 Mother Diabetes mellitus [email or web address] Not available 2024 14:41:12 Medical History Condition Response Coronary Artery Disease N Atrial Fibrillation N High Blood Pressure Y Thyroid Problems N Kidney or Bladder Problems N GI Problems N Depression Y COPD N Blood Clots Y Skin Problems N Heart Attack ([place]) N Anxiety Disorder Y Diabetes N Muscle, Joint, or Bone Problems Y Seizures/Epilepsy N Cancer N Stroke N Asthma N High Cholesterol N Hepatitis N Liver Disease N Headaches Y Osteoporosis N Heart Failure N Gynecological HistoryNo gynecological history recorded. Obstetrics History GPAL:G 0 P 0 0 0 0 Past Encounters Encounter ID Performer Location Encounter Start Date Encounter Closed Date Diagnosis/Indication Diagnosis SNOMED-CT Code Diagnosis ICD10 Code Diagnosis Note [id number] Adarsh Hirsch MD [facility] (Adult Med) [address] [place] [phone] 07/20/2024 14:28:46 07/20/2024 15:52:46 Body mass index 25-29 - overweight 545503091 Z68.28 Overweight 923459897 E66 .3 Chest pain 33795145 R07. 9 Insomnia 810106332 G47.0 0 Anxiety 27349492 F41.9 [id number] Adarsh Hirsch MD [facility] [place] [facility] [address] [place] [address] 08/25/2024 16:13:35 08/25/2024 18:06:02 Body mass index 25-29 - overweight 730337262 Z68.28 Gynecologi c examination 05253975 Z01.419 Anxiety 71374573 F41.9 Insomnia 036084994 G47.0 0 [id number] Adarsh Hirsch MD [facility] (Adult Med) [address] [place] [id number] 10/19/2024 14:57:40 10/19/2024 16:00:43 Smoker 72943868 F17.200 Body mass index 30+ - obesity 112921789 Z68.30 Obesity 936323549 E66.9 Anxiety 24914487 F41.9 Low back pain 402498401 M54.50 Health Concerns Section Related Observation LastModified by Organization Detai ls LastModified Time None Recorded Concern Status LastModified by Organization Details LastModified Time None Recorded Advance Directives Directive N: Payers Encounter Date Sequence Insurance Name Policy Number Policy Butt Covered Member ID Butt Member ID Guarantor Name 07/20/2024 1 [place] [id number] Elizabeth Vivod [id number] Elizabeth Vivod 08/25/2024 1 [place] [id number] Elizabeth Vivod [id number] Elizabeth Vivod 10/19/2024 1 [place] [id number] Elizabeth Vivod [id number] Elizabeth Vivod Notes Date Note Type Note Provider Name and Address Organization Details Recorded Time 07/20/2024 text/html 38-year-old who has been having a lot of anxiety and insomnia without any problems with suicidal or homicidal ideation treated for anxiety in the past and she is struggling again. Also she has had some epigastric discomfort from time to time has been going on for several months not related to exertion done does not make her break out into a sweat but occasionally she may feel it radiate to the jaw relieved with antacids at times she has some fatigue as well currently she is taking Xolair and uses an EpiPenallergies latex. 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 [facility] of a gastric sleeve spinal fusion right breast biopsy partial hysterectomy and a C-sectionfollows with pictures editor and breast surgeon at [facility] Adarsh Hirsch MD Attn: Accounting,[address] [place], [address], [facility] 07/24/2024 21:07:42 08/25/2024 text/html anxiety doing gr eat GERD symptoms resolved no side effects from medicines Adarsh Hirsch MD Attn: Accounting[address] [place], [address], [facility] 08/25/2024 22:06:49 10/19/2024 text/html Atraumatic back pain across her bra line 7 to 8/10 she has not really tried anything for it no radicular symptoms no numbness no tinglingAnxiety she needs refill of BuSpar no HI or SI it is doing fineShe needs to quit smoking Adarsh Hirsch MD Attn: Accounting[address] [place], [address], [facility] 10/28/2024 23:13:39 OBGyn Episode No OBEpisode recorded.
--- OUTSIDE RECORDS SUMMARY | 2024-12-19 18:39 | XMS_ITS | Data Portability ---
Author Organization [place] - [facility] [employer], Main Office Address [address] [place] [id number] Care Team Providers Care Concrete Layer Name Role Phone ADARSH HIRSCH Primary Care Provider [phone] Assessment Encounter Date Assessment Date Assessment LastModified by Organization Details LastModified Time 10/14/2022 10/14/2022 HIDA showed EF 25%, US unremarkable. CT showed HIDA scan. 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 Discussed options with patient including watchful waiting vs. lap romain. Patient wishes to undergo laparoscopic cholecystectomy. Explained procedure and risks including pain, infection, bleeding, CBD, liver, or bowel injury. Patient voiced understanding and wishes to proceed. Not available 10/14/2022 11:03:43 12/02/2022 12/02/2022 Some bruising at umbilicus s/p lap romain last week. RTC PRN. No post operative concerns at this time. Not available 12/02/2022 11:41:11 Plan of Treatment Reminders Order Date Submit Date Provider Last Modified By Organization Details Last Modified Time Details Appointments None record ed. Lab None record ed. Referral None record ed. Procedures None record ed. Surgeries None record ed. Imaging None record ed. Medication Orders None record ed. Patient TargetsNo targets recorded. Patient InstructionsNo instructions recorded. Reason for Referral None Reported. Results Created Date Observation Date Name Description Value Unit Range Abnormal Flag Note LastModifiedBy Organization Detail LastModifiedTime 07/30/1907/30/2022 LIPID PANEL cholesterol 173 mg/dL 140-19 9 NIH DEUCE NSUS RECOM MENDA TION FOR ROMAIN STERO L: ADULT CHILD LOW RISK: <200 <170 BORDE RLINE : <200- 239 ----- HIGH RISK: >240 >200 Not Available [facility] (Lab) [address] [place], [address], 07/30/2022 19:12:44 07/30/19 23 07/30/2022 LIPID PANEL triglyceride s 51 mg/dL 0-150 NIH DEUCE NSUS REPOR T RECOM MENDA TION FOR TRIGL YCERI DAVID: ADULT CHILD LOW RISK: <150 ----- BODER LINE: 150-1 99 ----- HIGH RISK: >200 ----- Not Available [facility] (Lab) [address] [place], [address], 07/30/2022 19:12:44 07/30/19 23 07/30/2022 LIPID PANEL HDL cholesterol 87 mg/dL 40- Not Available [facility] (Lab) [address] [place], [address], 07/30/2022 19:12:44 07/30/1907/30/2022 LIPID PANEL LDL cholesterol, calculated 76 mg/dL 0-130 NIH DEUCE NSUS REPOR T RECOM MENDA TIONS FOR LDL: ADULT CHILD LOW RISK <130 <110 (OPTI MAL LDL) <100 ----- BORDE RLINE : 130-1 59 ----- HIGH RISK: >160 >130 A TRIGL YCERI DE RESUL T >400 INVAL IDATE S THE CALCU LATIO N FOR LDL FRACT IONAT ION - THE LDL RESUL T WILL NOT BE REPOR EVA. Not Available [facility] (Lab) [address] [place], [address], 07/30/2022 19:12:44 07/30/1907/30/2022 COMPR EHENS ESTUARDO METAB OLIC PANEL sodium 138 mmol/ L 137-14 5 Not Available [facility] (Lab) [address] [place], [address], 07/30/2022 19:12:33 07/30/1907/30/2022 COMPR EHENS ESTUARDO METAB OLIC PANEL potassium 4.6 mmol/ L 3.5-5. 1 Not Available [facility] (Lab) [address] [place], [address], 07/30/2022 19:12:33 07/30/19 23 07/30/2022 COMPR EHENS ESTUARDO METAB OLIC PANEL chloride 103 mmol/ L 98-107 Not Available [facility] (Lab) [address] [place], [address], 07/30/2022 19:12:33 07/30/19 23 07/30/2022 COMPR EHENS ESTUARDO METAB OLIC PANEL carbon dioxide 25 mmol/ L 22-30 Not Available [facility] (Lab) [address] [place], [address], 07/30/2022 19:12:33 07/30/19 23 07/30/2022 COMPR EHENS ESTUARDO METAB OLIC PANEL anion gap 14.6 mmol/ L 14-22 Not Available [facility] (Lab) [address] [place], [address], 07/30/2022 19:12:33 07/30/19 23 07/30/2022 COMPR EHENS ESTUARDO METAB OLIC PANEL glucose 86 mg/dL 70-99 Not Available [facility] (Lab) [address] [place], [address], 07/30/2022 19:12:33 07/30/19 23 07/30/2022 COMPR EHENS ESTUARDO METAB OLIC PANEL BUN 14 mg/dL 8-19 Not Available [facility] (Lab) [address] [place], [address], 07/30/2022 19:12:33 07/30/19 23 07/30/2022 COMPR EHENS ESTUARDO METAB OLIC PANEL creatinine 0.53 mg/dL 0.66-1 .25 low Not Available [facility] (Lab) [address] [place], [address], 07/30/2022 19:12:33 07/30/19 23 07/30/2022 COMPR EHENS ESTUARDO METAB OLIC PANEL GFR >60 Refer ence Range : [place] ge GFR Healt hy Adult : >60 mL/mi n/1.7 3 m2 Chron ic Kidne y Disea se: 15-60 mL/mi n/1.7 3 m2 Kidne y Failu re: <15/m L/min /1.73 m2 www.n iddk. nih.g ov The MDRD study equat ion has not been valid ated in child dak[place] <18 years of age; pregn ant women ; the elder ly >85 years of age; or in some racia l or ethni c subgr oups, such as Hispa nics. Outsi de the valid ated mya eters , estim ated GFR is less accur ate, requi ring clini jimmy judgm ent on a case- by-ca se basis . Clini jimmy inter preta tion for other races and ages must be made by the clini diane. The MDRD study equat ion has not been valid ated for the evalu ation of serum creat inine relat ed to nutri jai l statu s or medic ation usage . For perso ns <18 years of age, a pedia tric GFR calcu lator is avail able on the [facility] websi te: https ://zeinab lemus.kristine linder.o rg/pr ofess ional s/kdo qi/gf r_cal culat or Not Available [facility] (Lab) [address] [place], [address], 07/30/2022 19:12:33 07/30/19 23 07/30/2022 COMPR EHENS ESTUARDO METAB OLIC PANEL alkaline phosphatase 47 U/L 38-126 Not Available [facility] (Lab) [address] [place], [address], 07/30/2022 19:12:33 07/30/19 23 07/30/2022 COMPR EHENS ESTUARDO METAB OLIC PANEL alanine aminotransfe rase 21 U/L 0-35 Not Available [facility] (Lab) [address] [place], [address], 07/30/2022 19:12:33 07/30/19 23 07/30/2022 COMPR EHENS ESTUARDO METAB OLIC PANEL aspartate aminotransfe rase 26 U/L 15-37 Not Available [facility] (Lab) [address] [place], [address], 07/30/2022 19:12:33 07/30/19 23 07/30/2022 COMPR EHENS ESTUARDO METAB OLIC PANEL bilirubin, total 0.50 mg/dL 0.20-1 .30 Not Available [facility] (Lab) [address] [place], [address], 07/30/2022 19:12:33 07/30/19 23 07/30/2022 COMPR EHENS ESTUARDO METAB OLIC PANEL calcium 9.6 mg/dL 8.4-10 .2 Not Available [facility] (Lab) [address] [place], [address], 07/30/2022 19:12:33 07/30/19 23 07/30/2022 COMPR EHENS ESTUARDO METAB OLIC PANEL total protein 8.1 g/dL 6.3-8. 2 Not Available [facility] (Lab) [address] [place], [address], 07/30/2022 19:12:33 07/30/19 23 07/30/2022 COMPR EHENS ESTUARDO METAB OLIC PANEL albumin 4.9 g/dL 3.4-5. 0 Not Available [facility] (Lab) [address] [place], [address], 07/30/2022 19:12:33 07/30/19 23 07/30/2022 COMPR EHENS ESTUARDO METAB OLIC PANEL globulin 3.2 g/dL 2.6-4. 2 Not Available [facility] (Lab) [address] [place], [address], 07/30/2022 19:12:33 07/30/19 23 07/30/2022 COMPR EHENS ESTUARDO METAB OLIC PANEL A/G ratio 1.5 ratio 1.0-2. 0 Not Available [facility] (Lab) [address] [place], [address], 07/30/2022 19:12:33 07/30/19 23 07/30/2022 LIPAS E SERUM lipase 146 U/L 23-300 Not Available [facility] (Lab) [address] [place], [address], 07/30/2022 19:12:27 07/30/19 23 07/30/2022 CBC/C OMPLE TE BLD COUNT W/DIF F white blood cells 4.2 x10'3 /uL 4.2-10 .8 Not Available [facility] (Lab) [address] [place], [address], 07/30/2022 17:51:38 07/30/19 23 07/30/2022 CBC/C OMPLE TE BLD COUNT W/DIF F red blood cells 4.68 x10'6 /uL 3.80-5 .20 Not Available [facility] (Lab) [address] [place], [address], 07/30/2022 17:51:38 07/30/19 23 07/30/2022 CBC/C OMPLE TE BLD COUNT W/DIF F hemoglobin 13.2 g/dL 12.0-1 5.6 Not Available [facility] (Lab) [address] [place], [address], 07/30/2022 17:51:38 07/30/19 23 07/30/2022 CBC/C OMPLE TE BLD COUNT W/DIF F hematocrit 40.7 % 35.7-4 5.7 Not Available [facility] (Lab) [address] [place], [address], 07/30/2022 17:51:38 07/30/19 23 07/30/2022 CBC/C OMPLE TE BLD COUNT W/DIF F mean red cell volume 87.0 fL 82.0-9 9.0 Not Available [facility] (Lab) [address] [place], [address], 07/30/2022 17:51:38 07/30/19 23 07/30/2022 CBC/C OMPLE TE BLD COUNT W/DIF F mean red cell hemoglobin 28.2 pg 27.0-3 3.0 Not Available [facility] (Lab) [address] [place], [address], 07/30/2022 17:51:38 07/30/19 23 07/30/2022 CBC/C OMPLE TE BLD COUNT W/DIF F mean RBC HGB concentratio n 32.4 g/dL 31.0-3 6.0 Not Available [facility] (Lab) [address] [place], [address], 07/30/2022 17:51:38 07/30/19 23 07/30/2022 CBC/C OMPLE TE BLD COUNT W/DIF F red cell distribution width 12.3 % 11.8-1 5.5 Not Available [facility] (Lab) [address] [place], [address], 07/30/2022 17:51:38 07/30/19 23 07/30/2022 CBC/C OMPLE TE BLD COUNT W/DIF F platelets 206 x10'3 /uL 150-40 0 Not Available [facility] (Lab) [address] [place], [address], 07/30/2022 17:51:38 07/30/19 23 07/30/2022 CBC/C OMPLE TE BLD COUNT W/DIF F mean platelet volume 10.9 fL 9.0-12 .4 Not Available [facility] (Lab) [address] [place], [address], 07/30/2022 17:51:38 07/30/19 23 07/30/2022 CBC/C OMPLE TE BLD COUNT W/DIF F neutrophils 49.8 % 39.0-7 2.0 Not Available [facility] (Lab) [address] [place], [address], 07/30/2022 17:51:38 07/30/19 23 07/30/2022 CBC/C OMPLE TE BLD COUNT W/DIF F lymphocytes 41.4 % 16.0-4 7.0 Not Available [facility] (Lab) [address] [place], [address], 07/30/2022 17:51:38 07/30/19 23 07/30/2022 CBC/C OMPLE TE BLD COUNT W/DIF F monocytes 6.5 % 5.0-12 .0 Not Available [facility] (Lab) [address] [place], [address], 07/30/2022 17:51:38 07/30/19 23 07/30/2022 CBC/C OMPLE TE BLD COUNT W/DIF F eosinophils 1.4 % 1.0-7. 0 Not Available [facility] (Lab) [address] [place], [address], 07/30/2022 17:51:38 07/30/19 23 07/30/2022 CBC/C OMPLE TE BLD COUNT W/DIF F basophils 0.7 % 0.0-2. 0 Not Available [facility] (Lab) [address] [place], [address], 07/30/2022 17:51:38 07/30/19 23 07/30/2022 CBC/C OMPLE TE BLD COUNT W/DIF F immature granulocytes 0.2 % 0.00-0 .50 Not Available [facility] (Lab) [address] [place], [address], 07/30/2022 17:51:38 07/30/19 23 07/30/2022 CBC/C OMPLE TE BLD COUNT W/DIF F neutrophils, absolute count 2.06 x10'3 /uL 1.5-8. 0 Not Available [facility] (Lab) [address] [place], [address], 07/30/2022 17:51:38 07/30/19 23 07/30/2022 CBC/C OMPLE TE BLD COUNT W/DIF F lymphocytes, absolute count 1.72 x10'3 /uL 1.07-3 .43 Not Available [facility] (Lab) [address] [place], [address], 07/30/2022 17:51:38 07/30/19 23 07/30/2022 CBC/C OMPLE TE BLD COUNT W/DIF F monocytes, absolute count 0.27 x10'3 /uL 0.29-0 .99 low Not Available [facility] (Lab) [address] [place], [address], 07/30/2022 17:51:38 07/30/19 23 07/30/2022 CBC/C OMPLE TE BLD COUNT W/DIF F eosinophils, absolute count 0.06 x10'3 /uL 0.02-0 .53 Not Available [facility] (Lab) [address] [place], [address], 07/30/2022 17:51:38 07/30/19 23 07/30/2022 CBC/C OMPLE TE BLD COUNT W/DIF F basophils, absolute count 0.03 x10'3 /uL 0.01-0 .08 Not Available [facility] (Lab) [address] [place], [address], 07/30/2022 17:51:38 07/30/19 23 07/30/2022 CBC/C OMPLE TE BLD COUNT W/DIF F immature granulocytes ,absolute 0.01 x10'3 /uL 0.00-0 .05 Not Available [facility] (Lab) [address] [place], [address], 07/30/2022 17:51:38 07/30/19 23 07/30/2022 CBC/C OMPLE TE BLD COUNT W/DIF F nucleated red blood cells 0.0 % -0 Not Available [facility] (Lab) [address] [place], [address], 07/30/2022 17:51:38 07/30/1907/30/2022 CBC/C OMPLE TE BLD COUNT W/DIF F NRBC# 0.00 x10'3 /uL Not Available [facility] (Lab) [address] [place], [address], 07/30/2022 17:51:38 11/20/19 23 11/19/2022 CBC/C OMPLE TE BLD COUNT W/DIF F white blood cells 3.4 x10'3 /uL 4.2-10 .8 low Not Available [facility] (Lab) [address] [place], [address], 11/19/2022 08:48:07 11/20/1911/19/2022 CBC/C OMPLE TE BLD COUNT W/DIF F red blood cells 4.65 x10'6 /uL 3.80-5 .20 Not Available [facility] (Lab) [address] [place], [address], 11/19/2022 08:48:07 11/20/1911/19/2022 CBC/C OMPLE TE BLD COUNT W/DIF F hemoglobin 12.7 g/dL 12.0-1 5.6 Not Available [facility] (Lab) [address] [place], [address], 11/19/2022 08:48:07 11/20/19 23 11/19/2022 CBC/C OMPLE TE BLD COUNT W/DIF F hematocrit 40.3 % 35.7-4 5.7 Not Available [facility] (Lab) [address] [place], [address], 11/19/2022 08:48:07 11/20/19 23 11/19/2022 CBC/C OMPLE TE BLD COUNT W/DIF F mean red cell volume 86.7 fL 82.0-9 9.0 Not Available [facility] (Lab) [address] [place], [address], 11/19/2022 08:48:07 11/20/19 23 11/19/2022 CBC/C OMPLE TE BLD COUNT W/DIF F mean red cell hemoglobin 27.3 pg 27.0-3 3.0 Not Available [facility] (Lab) [address] [place], [address], 11/19/2022 08:48:07 11/20/19 23 11/19/2022 CBC/C OMPLE TE BLD COUNT W/DIF F mean RBC HGB concentratio n 31.5 g/dL 31.0-3 6.0 Not Available [facility] (Lab) [address] [place], [address], 11/19/2022 08:48:07 11/20/1911/19/2022 CBC/C OMPLE TE BLD COUNT W/DIF F red cell distribution width 12.6 % 11.8-1 5.5 Not Available [facility] (Lab) [address] [place], [address], 11/19/2022 08:48:07 11/20/19 23 11/19/2022 CBC/C OMPLE TE BLD COUNT W/DIF F platelets 187 x10'3 /uL 150-40 0 Not Available [facility] (Lab) [address] [place], [address], 11/19/2022 08:48:07 11/20/1911/19/2022 CBC/C OMPLE TE BLD COUNT W/DIF F mean platelet volume 10.5 fL 9.0-12 .4 Not Available [facility] (Lab) [address] [place], [address], 11/19/2022 08:48:07 11/20/1911/19/2022 CBC/C OMPLE TE BLD COUNT W/DIF F neutrophils 53.3 % 39.0-7 2.0 Not Available [facility] (Lab) [address] [place], [address], 11/19/2022 08:48:07 11/20/1911/19/2022 CBC/C OMPLE TE BLD COUNT W/DIF F lymphocytes 34.5 % 16.0-4 7.0 Not Available [facility] (Lab) [address] [place], [address], 11/19/2022 08:48:07 11/20/1911/19/2022 CBC/C OMPLE TE BLD COUNT W/DIF F monocytes 9.2 % 5.0-12 .0 Not Available [facility] (Lab) [address] [place], [address], 11/19/2022 08:48:07 11/20/1911/19/2022 CBC/C OMPLE TE BLD COUNT W/DIF F eosinophils 2.4 % 1.0-7. 0 Not Available [facility] (Lab) [address] [place], [address], 11/19/2022 08:48:07 11/20/1911/19/2022 CBC/C OMPLE TE BLD COUNT W/DIF F basophils 0.6 % 0.0-2. 0 Not Available [facility] (Lab) [address] [place], [address], 11/19/2022 08:48:07 11/20/19 23 11/19/2022 CBC/C OMPLE TE BLD COUNT W/DIF F immature granulocytes 0.0 % 0.00-0 .50 Not Available [facility] (Lab) [address] [place], [address], 11/19/2022 08:48:07 11/20/19 23 11/19/2022 CBC/C OMPLE TE BLD COUNT W/DIF F neutrophils, absolute count 1.79 x10'3 /uL 1.5-8. 0 Not Available [facility] (Lab) [address] [place], [address], 11/19/2022 08:48:07 11/20/1911/19/2022 CBC/C OMPLE TE BLD COUNT W/DIF F lymphocytes, absolute count 1.16 x10'3 /uL 1.07-3 .43 Not Available [facility] (Lab) [address] [place], [address], 11/19/2022 08:48:07 11/20/1911/19/2022 CBC/C OMPLE TE BLD COUNT W/DIF F monocytes, absolute count 0.31 x10'3 /uL 0.29-0 .99 Not Available [facility] (Lab) [address] [place], [address], 11/19/2022 08:48:07 11/20/1911/19/2022 CBC/C OMPLE TE BLD COUNT W/DIF F eosinophils, absolute count 0.08 x10'3 /uL 0.02-0 .53 Not Available [facility] (Lab) [address] [place], [address], 11/19/2022 08:48:07 11/20/19 23 11/19/2022 CBC/C OMPLE TE BLD COUNT W/DIF F basophils, absolute count 0.02 x10'3 /uL 0.01-0 .08 Not Available [facility] (Lab) [address] [place], [address], 11/19/2022 08:48:07 11/20/19 23 11/19/2022 CBC/C OMPLE TE BLD COUNT W/DIF F immature granulocytes ,absolute 0.00 x10'3 /uL 0.00-0 .05 Not Available [facility] (Lab) [address] [place], [address], 11/19/2022 08:48:07 11/20/19 23 11/19/2022 CBC/C OMPLE TE BLD COUNT W/DIF F nucleated red blood cells 0.0 % -0 Not Available [facility] (Lab) [address] [place], [address], 11/19/2022 08:48:07 11/20/19 23 11/19/2022 CBC/C OMPLE TE BLD COUNT W/DIF F NRBC# 0.00 x10'3 /uL Not Available [facility] (Lab) [address] [place], [address], 11/19/2022 08:48:07 11/20/19 23 11/19/2022 COMPR EHENS ESTUARDO METAB OLIC PANEL sodium 139 mmol/ L 137-14 5 Not Available [facility] (Lab) [address] [place], [address], 11/19/2022 08:53:56 11/20/19 23 11/19/2022 COMPR EHENS ESTUARDO METAB OLIC PANEL potassium 4.0 mmol/ L 3.5-5. 1 Not Available [facility] (Lab) [address] [place], [address], 11/19/2022 08:53:56 11/20/19 23 11/19/2022 COMPR EHENS ESTUARDO METAB OLIC PANEL chloride 104 mmol/ L 98-107 Not Available [facility] (Lab) [address] [place], [address], 11/19/2022 08:53:56 11/20/19 23 11/19/2022 COMPR EHENS ESTUARDO METAB OLIC PANEL carbon dioxide 25 mmol/ L 22-30 Not Available [facility] (Lab) [address] [place], [address], 11/19/2022 08:53:56 11/20/19 23 11/19/2022 COMPR EHENS ESTUARDO METAB OLIC PANEL anion gap 14.0 mmol/ L 14-22 Not Available [facility] (Lab) [address] [place], [address], 11/19/2022 08:53:56 11/20/1911/19/2022 COMPR EHENS ESTUARDO METAB OLIC PANEL glucose 74 mg/dL 70-99 Not Available [facility] (Lab) [address] [place], [address], 11/19/2022 08:53:56 11/20/19 23 11/19/2022 COMPR EHENS ESTUARDO METAB OLIC PANEL BUN 15 mg/dL 8-19 Not Available [facility] (Lab) [address] [place], [address], 11/19/2022 08:53:56 11/20/19 23 11/19/2022 COMPR EHENS ESTUARDO METAB OLIC PANEL creatinine 0.68 mg/dL 0.66-1 .25 Not Available [facility] (Lab) [address] [place], [address], 11/19/2022 08:53:56 11/20/1911/19/2022 COMPR EHENS ESTUARDO METAB OLIC PANEL GFR >60 Refer ence Range : [place] ge GFR Healt hy Adult : >60 mL/mi n/1.7 3 m2 Chron ic Kidne y Disea se: 15-60 mL/mi n/1.7 3 m2 Kidne y Failu re: <15/m L/min /1.73 m2 www.n iddk. nih.g ov The MDRD study equat ion has not been valid ated in child [place] <18 years of age; pregn ant women ; the elder ly >85 years of age; or in some racia l or ethni c subgr oups, such as Hispa nics. Outsi de the valid ated mya eters , estim ated GFR is less accur ate, requi ring clini jimmy judgm ent on a case- by-ca se basis . Clini jimmy inter preta tion for other races and ages must be made by the clini diane. The MDRD study equat ion has not been valid ated for the evalu ation of serum creat inine relat ed to nutri jai l statu s or medic ation usage . For perso ns <18 years of age, a pedia tric GFR calcu lator is avail able on the [facility] websi te: https ://zeinab w.kristine linder.o rg/pr ofess ional s/kdo qi/gf r_cal culat or Not Available [facility] (Lab) [address] [place], [address], 11/19/2022 08:53:56 11/20/19 23 11/19/2022 COMPR EHENS ESTUARDO METAB OLIC PANEL alkaline phosphatase 37 U/L 38-126 low Not Available [facility] (Lab) [address] [place], [address], 11/19/2022 08:53:56 11/20/19 23 11/19/2022 COMPR EHENS ESTUARDO METAB OLIC PANEL alanine aminotransfe rase 21 U/L 0-35 Not Available [facility] (Lab) [address] [place], [address], 11/19/2022 08:53:56 11/20/19 23 11/19/2022 COMPR EHENS ESTUARDO METAB OLIC PANEL aspartate aminotransfe rase 26 U/L 15-37 Not Available [facility] (Lab) [address] [place], [address], 11/19/2022 08:53:56 11/20/19 23 11/19/2022 COMPR EHENS ESTUARDO METAB OLIC PANEL bilirubin, total 0.50 mg/dL 0.20-1 .30 Not Available [facility] (Lab) [address] [place], [address], 11/19/2022 08:53:56 11/20/19 23 11/19/2022 COMPR EHENS ESTUARDO METAB OLIC PANEL calcium 9.2 mg/dL 8.4-10 .2 Not Available [facility] (Lab) [address] [place], [address], 11/19/2022 08:53:56 11/20/1911/19/2022 COMPR EHENS ESTUARDO METAB OLIC PANEL total protein 7.5 g/dL 6.3-8. 2 Not Available [facility] (Lab) [address] [place], [address], 11/19/2022 08:53:56 11/20/19 23 11/19/2022 COMPR EHENS ESTUARDO METAB OLIC PANEL albumin 4.5 g/dL 3.4-5. 0 Not Available [facility] (Lab) [address] [place], [address], 11/19/2022 08:53:56 11/20/19 23 11/19/2022 COMPR EHENS ESTUARDO METAB OLIC PANEL globulin 3.0 g/dL 2.6-4. 2 Not Available [facility] (Lab) [address] [place], [address], 11/19/2022 08:53:56 11/20/1911/19/2022 COMPR EHENS ESTUARDO METAB OLIC PANEL A/G ratio 1.5 ratio 1.0-2. 0 Not Available [facility] (Lab) [address] [place], [address], 11/19/2022 08:53:56 08/04/19 23 08/04/2022 US, abdom en No observ ation record ed. [id number] [facility] [address], [place], [address], 09/10/2022 15:20:01 08/15/19 23 08/15/2022 NM, hepat obili samantha scan No observ ation record ed. [id number] [facility] [address], [place], [address], 09/10/2022 15:20:01 09/20/19 23 09/19/2022 CT, abdom en + pelvi s, w/ contr ast [facility]ICA L [address] [address] [facility] t Name: MELANIEYAAKOV Quinteros Access ion #: [id number] Sex: F : 1985 6 Locati on: RAD Attend ing Physic scot: KAIDEN LAM Orderi ng Physic scot: KAIDEN LAM Exam Date: 023 8:56 AM Exam Name: CT ABDOME N PELVIS W Admitt ing Diagno sis(es ): RADIOL OGY REPORT - FINAL EXAM: CT ABDOME N PELVIS W HISTOR Y: EPIGAS TRIC PAIN COMPAR ERIBERTO: None TECHNI QUE: The abdome n and pelvis are evalua eva with intrav enous contra st. Axial images are recons tructe d in the jolley l, sagitt al, and axial planes and are review ed with medias tinal lung window s settin gs. This CT exam was perfor med using one or more of the follow ing dose reduct ion techni ques: Automa eva exposu re contro l, adjust ment of the mA and/or kV accord ing to patien t size, or use of iterat estuardo recons tructi on techni que. Dose: 100 ML Isovue 3 intrav enous Page 1 of 4 [facility] Name: YAAKOV MEDINA Access ion #: [id number] Sex: F : 1985 8 Exam Date: 023 8:56 AM Exam Name: CT ABDOME N PELVIS W Admitt ing Diagno sis(es ): Oral contra st:30 mL Gastro view PO FINDIN GS: Lower thorax : Clear lung cooper . Patien t has had a gastri c sleeve surgic al proced ure. There is eviden ce of a hiatus hernia measur ing proxim ally 3 cm thicke julio of the mucosa at the GE juncti on correl ate for gastri tis or other pathol ogy. Direct visual izatio n will prove benefi cial. CT ABDOME N: Liver: Fatty liver parenc hymal replac ement residu als Gallbl adder and biliar y system : Unrema rkable Spleen : Normal size Pancre as: Unrema rkable Adrena l glands : Unrema rkable Kidney s and ureter s: Unrema rkable Append ix: Not visual ized, no eviden ce of append icitis Stomac h and bowel: No eviden ce of gastri c outlet obstru ction, no eviden ce of extrav asatio n of contra st Perito adilson cavity : No acute proces s Lymph nodes: No signif icant lympha denopa thy Page [address] [facility] [place] [facility] t Name: YAAKOV MEDINA Access ion #: [id number] Sex: F : 1985 8 Exam Date: 023 8:56 AM Exam Name: CT ABDOME N PELVIS W Admitt ing Diagno sis(es ): Vascul ature: No aneury sm Osseou s struct ures: Multil evel degene rative change s, discec kamlesh with interb oral and anteri or fusion change s noted at L4-5 and L5-S1. Extra abdomi nal soft tissue s: No acute proces s CT PELVIS : Reprod uctive : Retrof lexed uterus . 3.1 cm left ovary with eviden ce of enhanc ing corpus luteum cyst. Rectos igmoid : No acute proces s Bladde r and distal ureter s: The urinar y bladde r is decomp ressed no hydrou reter Extra pelvic soft tissue s: Unrema rkable IMPRES VIET: 1. Thicke desiree mucosa at the GE juncti on and eviden ce of a hiatal hernia , consid er direct visual izatio n of this area to exclud e signif icant pathol ogy. 2. No eviden ce of extrav asatio n of contra st or absces s, no eviden ce of pneumo perito neum. 3. Other findin gs descri bed above. Create d and electr onical ly signed by: Page 3 of 4 [facility] Patien t Name: YAAKOV MEDINA Access ion #: [id number] Sex: F : 1985 8 Exam Date: 8:56 AM Exam Name: CT ABDOME N PELVIS W Admitt ing Diagno sis(es ): Markus bustamante MD Signed Date: 3:32 PM (CT) Dictat ed by: Markus bustamante MD DD: 3:32 PM (CT) DT: 3:32 PM (CT) Page 4 of [address] (Imaging) [address] [place], [address], 09/22/2022 08:30:23 09/20/19 23 09/19/2022 CT, abdom en + pelvi s, w/ contr ast No observ ation record ed. [address] [place], [address], 09/22/2022 15:48:14 12/25/1909/19/2022 CT, abdom en + pelvi s, w/ contr ast [facility] [address] [place] [address] Patien t Name: YAAOKV MEDINA Access ion #: [id number] Sex: F : 1985 8 Locati on: RAD Attend ing Physic scot: KAIDEN LAM Orderi ng Physic scot: KAIDEN LAM Exam Date: 8:56 AM Exam Name: CT ABDOME N PELVIS W Admitt ing Diagno sis(es ): RADIOL OGY REPORT - FINAL WITH ADDEND UM ADDEND UM: Accord ing to the histor y the patien t has had a hyster ectomy . The struct ure that I was referr ing to may relate to a promin ent cervic al cuff, recomm end ultras ound to furthe r evalua te this findin g. Create d and electr onical ly signed by: Markus bustamante MD Signed Date: 2:40 PM (CT) Dictat ed by: Markus bustamante MD DD: 2:40 PM (CT) DT: 2:40 PM (CT) Report _ID: [id number] EXAM: CT ABDOME N PELVIS W Page [address] [facility] [place] Colby vazquez Name: YAAKOV MEDINA Access ion #: [id number] Sex: F : 1985 8 Exam Date: 8:56 AM Exam Name: CT ABDOME N PELVIS W Admitt ing Diagno sis(es ): HISTOR Y: EPIGAS TRIC PAIN COMPAR ERIBERTO: None TECHNI QUE: The abdome n and pelvis are evalua eva with intrav enous contra st. Axial images are recons tructe d in the jolley l, sagitt al, and axial planes and are review ed with medias tinal lung window s settin gs. This CT exam was perfor med using one or more of the follow ing dose reduct ion techni ques: Automa eva exposu re contro l, adjust ment of the mA and/or kV accord ing to patien t size, or use of iterat estuardo recons tructi on techni que. Dose: 100 ML Isovue 3 intrav enous Oral contra st:30 mL Gastro view PO FINDIN GS: Lower thorax : Clear lung cooper . Colby vazquez has had a gastri c sleeve surgic al proced ure. There is eviden ce of a hiatus hernia measur ing proxim ally 3 cm thicke julio of the mucosa at the GE juncti on correl ate for gastri tis or other pathol ogy. Direct visual izatio n will prove benefi cial. CT ABDOME N: Liver: Fatty liver parenc hymal replac ement residu als Gallbl adder and biliar y system : Unrema rkable Page 2 of 4 [facility] t Name: YAAKOV MEDINA Access ion #: [id number] Sex: F : 1985 8 Exam Date: 023 8:56 AM Exam Name: CT ABDOME N PELVIS W Admitt ing Diagno sis(es ): Spleen : Normal size Pancre as: Unrema rkable Adrena l glands : Unrema rkable Kidney s and ureter s: Unrema rkable Append ix: Not visual ized, no eviden ce of append icitis Stomac h and bowel: No eviden ce of gastri c outlet obstru ction, no eviden ce of extrav asatio n of contra st Perito adilson cavity : No acute proces s Lymph nodes: No signif icant lympha denopa thy Vascul ature: No aneury sm Osseou s struct ures: Multil evel degene rative change s, discec kamlesh with interb oral and anteri or fusion change s noted at L4-5 and L5-S1. Extra abdomi nal soft tissue s: No acute proces s CT PELVIS : Reprod uctive : Retrof lexed uterus . 3.1 cm left ovary with eviden ce of enhanc ing corpus luteum cyst. Page 3 of 4 [facility] Patien t Name: YAAKOV MEDINA Access ion #: [id number] Sex: F : 1985 8 Exam Date: 023 8:56 AM Exam Name: CT ABDOME N PELVIS W Admitt ing Diagno sis(es ): Rectos igmoid : No acute proces s Bladde r and distal ureter s: The urinar y bladde r is decomp ressed no hydrou reter Extra pelvic soft tissue s: Unrema rkable IMPRES VIET: 1. Thicke desiree mucosa at the GE juncti on and eviden ce of a hiatal hernia , consid er direct visual izatio n of this area to exclud e signif icant pathol ogy. 2. No eviden ce of extrav asatio n of contra st or absces s, no eviden ce of pneumo perito neum. 3. Other findin gs descri bed above. Create d and electr onical ly signed by: Markus bustamante MD Signed Date: 3:32 PM (CT) Dictat ed by: Markus bustamante MD DD: 3:32 PM (CT) DT: 3:32 PM (CT) Page 4 of [address] (Imaging) [address] [place], [address], 12/29/2022 10:20:53 07/22/19 24 07/22/2023 MAMMO , diagn ostic , bilat eral No observ ation record ed. [facility] [address] [place] [address], [id number], 07/23/2023 08:45:03 09/21/19 24 09/21/2023 XR, toe(s ), 2 or more view No observ ation record ed. [email or web address] [place] [address], [id number], 12/31/2023 10:16:20 Result Notes None recorded. Problems Name Problem SNOMED Code Status Onset Date Resolution Date Notes Provider Name and Address Organization Details Recorded Time Otalgia 28370461 Active Not Available [facility] 3 22:26:01 Pain in throat 307600424 Active Not Available [employer] 3 22:26:01 Biliary dyskinesia 721596664 Active 2022 Not Available [employer] 3 22:26:01 Enlarged uterus 840850434 Active Not Available [employer] 3 22:26:01 Abdominal pain 73966927 Active Not Available [facility] 3 22:26:01 Gastroesop hageal reflux disease 588666370 Active Not Available [facility] 3 22:26:02 Dysmenorrh ea 571494385 Active Not Available [facility] 3 22:26:02 Eruption 640613157 Active Not Available [facility] 3 22:26:02 Low back pain 527206637 Active Not Available [facility] 3 22:26:02 Lesion of breast 237524902 Active 2016 Not Available [facility] 3 22:26:02 Chest pain 58999480 Active Not Available [facility] 3 22:26:02 Menometror rhagia 035107712 Active Not Available [facility] 3 22:26:02 Contact dermatitis 09024644 Active Not Available [facility] 3 22:26:02 Dizziness 807657574 Active 2021 Not Available [facility] 3 22:26:02 Pharyngiti s 954257172 Active Not Available [facility] 3 22:26:02 Fracture of lower leg 952437375 Active Not Available [facility] 3 22:26:02 Anxiety 22173103 Active Not Available [facility] 3 22:26:02 Dysuria 36362016 Active Not Available [facility] 3 22:26:02 White blood cell disorder 80895574 Completed Not Available [facility] 3 15:17:19 Upper respirator y infection 74432898 Active Not Available [facility] 3 22:26:02 Essential hypertensi on 14958136 Active 2016 Not Available [facility] 3 22:26:02 Rhinitis 72744352 Active Not Available [facility] 3 22:26:02 Palpitatio ns 85683520 Active Not Available [facility] 3 22:26:02 Closed fracture of phalanx of foot 30547338 Active Not Available [facility] 3 22:26:02 COVID-19 727231409 Active 2021 Not Available [facility] 3 22:26:02 Carlota hawley 08114559 Active 2021 Not Available [facility] 3 22:26:02 Problem Notes None recorded. Procedures Surgical History Date Name Laterality Status Provider Name and Address Organization Details Recorded Time 11/25/19 23 Cholecystectomy completed Yvette Deras [place] - [place] [employer] 12/01/2022 10:38:51 04/12/20 21 Hysterectomy completed Not Available [facility] 09/10/2022 15:14:17 01/31/20 20 Date of Last Pap Smear completed Not Available [facility] 09/10/2022 15:14:16 01/18/20 20 Orthopedic Surgery completed Not Available [facility] 09/10/2022 15:14:17 01/04/20 20 Orthopedic Surgery completed Not Available [facility] 09/10/2022 15:14:17 10/07/19 19 laparoscopic sleeve gastrectomy completed Not Available [facility] 09/10/2022 15:14:17 08/24/19 15 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 Procedure Notes None recorded. Medical Equipment None Reported. Allergies Allergen ID Allergen Name Allergen Category Reaction Reaction Severity Criticality Documentation Date Start Date Code Code System Note Provider Name and Address Organization Details Recorded Time 04910 acetamino phen / oxycodone medicatio n itching Not available Not available 09/10/2022 29633 3 RxNorm Not Available [facility] 15:19:58 09319 latex environme nt,medica tion Not available Not available Not available 09/10/2022 85006 91 RxNorm Not Available [facility] 15:19:58 68397 banana extract food,medi cation Not available Not available Not available 09/10/2022 10702 9 RxNorm Not Available [facility] 3 15:19:58 42341 avocado allergeni c extract food Not available Not available Not available 09/10/2022 66112 2 RxNorm Not Available [facility] 3 15:19:58 Medications Name Sig Start Date Stop Date Status Note LastModified by Organization Details LastModified Time binaxnow cov kit home sagar active Not Available Not Available Not Available carisoprodo l 350 mg tablet Take 1 tablet 3 times a day by oral route. 10/07 completed Not Available Not Available Not Available cyclobenzap rine 10 mg tablet TAKE 1 TABLET BY MOUTH AT BEDTIME NEEDED 07/30 completed Not Available Not Available Not Available amoxicillin 500 mg capsule TAKE 1 CAPSULE BY MOUTH THREE TIMES DAILY FOR 7 DAYS active Not Available Not Available No t Available methocarbam ol 500 mg tablet 11/12 completed Not Available Not Available Not Available buspirone 5 mg tablet Take 1 tablet twice a day by oral route. active Not Available Not Available No t Available Augmentin 875 mg-125 mg tablet Take 1 tablet every 12 hours by oral route. 04/12 completed Not Available Not Available Not Available prednisone 10 mg tablet Take by oral route. active Not Available Not Available No t Available azithromyci n 250 mg tablet TAKE 2 TABLETS (500 MG) BY ORAL ROUTE ONCE DAILY FOR 1 DAY THEN 1 TABLET (250 MG) BY ORAL ROUTE ONCE DAILY FOR 4 DAYS 07/30 completed Not Available Not Available Not Available ibuprofen 800 mg tablet 08/27 completed Not Available Not Available Not Available fluconazole 150 mg tablet TK 1 T PO 1 TIME FOR ONE DOSE 08/18 completed Not Available Not Available Not Available benzonatate 200 mg capsule TK 1 C PO TID PRF COUGH 08/27 completed Not Available Not Available Not Available hydrocodone 5 mg-acetamin ophen 325 mg tablet TAKE 1 TABLET BY MOUTH EVERY 4-6 HOURS NEEDED active Not Available Not Available No t Available meloxicam 15 mg tablet 08/18 completed Not Available Not Available Not Available ondansetron HCl 4 mg tablet 08/27 completed Not Available Not Available Not Available famotidine 40 mg tablet 02/22 completed Not Available Not Available Not Available prednisone 20 mg tablet TK 2 TS PO QD FOR 5 DAYS 02/22 completed Not Available Not Available Not Available phentermine 37.5 mg tablet take 1 tablet 2hrs after breakfast daily active Not Available Not Available No t Available fluocinonid e 0.05 % topical ointment 11/12 completed Not Available Not Available Not Available ciprofloxac in 500 mg tablet TK 1 T PO BID FOR 7 DAYS 08/18 completed Not Available Not Available Not Available tramadol 50 mg tablet 08/27 completed Not Available Not Available Not Available triamcinolo ne acetonide 0.1 % topical cream 02/22 completed Not Available Not Available Not Available ketorolac 30 mg/mL (1 mL) injection solution Inject 1 mL as needed by intramusc ular route. 10/07 completed Not Available Not Available Not Available ketorolac 0.5 % eye drops APPLY 1 DROP INTO BOTH EYES 3 TIMES A DAY NEEDED FOR ITCHING 07/30 completed Not Available Not Available Not Available Kenalog 40 mg/mL suspension for injection Take 1 mL every day by injection route. 12/21 completed Not Available Not Available Not Available oxycodone-a cetaminophe n 5 mg-325 mg tablet 09/26 completed Not Available Not Available Not Available amoxicillin 875 mg tablet active Not Available Not Available Not Available lorazepam 0.5 mg tablet 10/07 completed Not Available Not Available Not Available methocarbam ol 750 mg tablet 01/30 completed Not Available Not Available Not Available nifedipine ER 60 mg tablet,exte nded release 24 hr TAKE 1 TABLET DAILY active Not Available Not Available No t Available dicyclomine 20 mg tablet active Not Available Not Available Not Available amoxicillin 250 mg/5 mL oral suspension amoxil 250 mg/5 cc 5 cctid 1 week active Not Available Not Available No t Available ciprofloxac in 0.3 % eye drops 03/31 completed Not Available Not Available Not Available meclizine 25 mg tablet Take 1 tablet 3 times a day by oral route as needed. 03/31 completed Not Available Not Available Not Available benzonatate 100 mg capsule 08/18 completed Not Available Not Available Not Available cephalexin 500 mg capsule active Not Available Not Available Not Available pantoprazol e 40 mg tablet,penny yed release Take 1 tablet every day by oral route. active Not Available Not Available No t Available hyoscyamine sulfate 0.125 mg tablet 10/07 completed Not Available Not Available Not Available triamcinolo ne acetonide 0.1 % topical ointment APPLY A THIN LAYER TO RASH DAILY 02/22 completed Not Available Not Available Not Available omeprazole 20 mg capsule,del ayed release 04/12 completed Not Available Not Available Not Available montelukast 10 mg tablet Take 1 tablet every day by oral route. 08/27 completed Not Available Not Available Not Available hydrocodone 5 mg-acetamin ophen 500 mg tablet active Not Available Not Available No t Available clobetasol 0.05 % topical ointment 02/22 completed Not Available Not Available Not Available lorazepam 1 mg tablet active Not Available Not Available No t Available ibuprofen 600 mg tablet 02/22 completed Not Available Not Available Not Available methylpredn isolone 4 mg tablets in a dose pack 08/18 completed Not Available Not Available Not Available Vitamin D2 1,250 mcg (50,000 unit) capsule active Not Available Not Available Not Available nifedipine ER 60 mg tablet,exte nded release Take 1 tablet every day by oral route. 08/27 completed Not Available Not Available Not Available hydroxyzine HCl 10 mg tablet 02/22 completed Not Available Not Available Not Available sertraline 50 mg tablet Take 1 tablet every day by oral route. 08/18 completed Not Available Not Available Not Available fludrocorti sone 0.1 mg tablet 02/04 completed Not Available Not Available Not Available Ventolin HFA 90 mcg/actuati on aerosol inhaler 11/12 completed Not Available Not Available Not Available midodrine 10 mg tablet 12/06 completed Not Available Not Available Not Available cyclobenzap rine 5 mg tablet active Not Available Not Available Not Available hydrocodone 7.5 mg-acetamin ophen 325 mg/15 mL oral solution 11/12 completed Not Available Not Available Not Available GaviLyte-G 236 gram-22.74 gram-6.74 gram-5.86 gram oral solution 10/07 completed Not Available Not Available Not Available Dexilant 60 mg capsule, delayed release active Not Available Not Available Not Available Suprep Bowel Prep Kit 17.5 gram-3.13 gram-1.6 gram oral solution 08/27 completed Not Available Not Available Not Available Linzess 290 mcg capsule 02/22 completed Not Available Not Available Not Available Virtussin AC 10 mg-100 mg/5 mL oral liquid TK 5 ML PO Q 4-6 H PRN 08/18 completed Not Available Not Available Not Available BinaxNOW COVID-19 Ag Self Test kit TEST DIRECTED TODAY active Not Available Not Available No t Available Vitals Date Recorded Body mass index (BMI) Body height Heart rate Body temperature Body weight Systolic blood pressure Diastolic blood pressure Provider Name and Address Organization Details Last Updated DateTime 3 25.9 kg/m2 162.56 cm 69 /min 97.6 [degF] 18368.4 5 g 124 mm[Hg] 80 mm[Hg] Not Available [facility] 3 15:16:35 Date Recorded Body mass index (BMI) Body height Heart rate Body temperature Body weight Systolic blood pressure Diastolic blood pressure Provider Name and Address Organization Details Last Updated DateTime 3 26.3 kg/m2 162.56 cm 64 /min 98.1 [degF] 07866.6 3 g 118 mm[Hg] 68 mm[Hg] Not Available [facility] 3 15:16:36 Date Recorded Body mass index (BMI) Body height Oxygen saturation Oxygen saturation in Arterial blood by Pulse oximetry Heart rate Respiratory rate Body weight Systolic blood pressure Diastolic blood pressure Provider Name and Address Organization Details Last Updated DateTime 3 26.3 kg/m2 162.56 cm 99 % 99 % 98.6 /min 14 /min 28834.6 3 g 120 mm[Hg] 80 mm[Hg] Not Available [facility] 3 15:16:36 Date Recorded Body mass index (BMI) Body weight Body temperature Respiratory rate Oxygen saturation Oxygen saturation in Arterial blood by Pulse oximetry Systolic blood pressure Diastolic blood pressure Provider Name and Address Organization Details Last Updated DateTime 3 26.3 kg/m2 58570.6 3 g 98 [degF] 14 /min 99 % 99 % 120 mm[Hg] 80 mm[Hg] Rebecca Durham [facility] [place] [employer] 3 10:54:52 Date Recorded Body height Provider Name an d Address Organization Details Last Updated DateTime 10/14/2022 162.56 cm Yvette Deras MA [facility] [employer] 10/14/2022 10:42:10 Date Recorded Body height Body mass index (BMI) Body weight Body temperature Heart rate Respiratory rate Oxygen saturation Oxygen saturation in Arterial blood by Pulse oximetry Systolic blood pressure Diastolic blood pressure Provider Name and Address Organization Details Last Updated DateTime 3 162.56 cm 26.3 kg/m2 08788.6 3 g 98.6 [degF] 66 /min 14 /min 99 % 99 % 120 mm[Hg] 80 mm[Hg] Yvette Deras [place] [facility] [place] [employer] 3 11:24:48 Social History Question Answer Notes LastModified by Organization Details LastModified Time Tobacco Smoking Status Former Smoker quit 2018 Not Available [employer] 09/10/2022 15:14:10 Do You Have An Advance Directive? No MIGRATION.030 [id number] Information not available 09/10/2022 Do You Wear A Helmet When Biking? No MIGRATION.030 [id number] Information not available 09/10/2022 What Is Your Level Of Caffeine Consumption? Occasional MIGRATION.030 [id number] Information not available 09/10/2022 In The 14 Days Before Symptom Onset, Have You Had Close Contact With A Laboratory-confi rmed COVID-19 While That Case Was Ill? No MIGRATION.030 [id number] Information not available 09/10/2022 In The 14 Days Before Symptom Onset, Have You Had Close Contact With A Person Who Is Under Investigation For COVID-19 While That Person Was Ill? No MIGRATION.030 [id number] Information not available 09/10/2022 What Type Of Diet Are You Following? SPECIFIC Gastric Sleeve Diet MIGRATION.300026 Information not available 09/10/2022 What Is The Highest Grade Or Level Of School You Have Completed Or The Highest Degree You Have Received? [id number] MIGRATION.300026 Information not available 09/10/2022 Have There Been Any Changes To Your Family Or Social Situation? No MIGRATION.030 [id number] Information not available 09/10/2022 What Is The Fluoride Status Of Your Home? Unknown MIGRATION.300 [id number] Information not available 09/10/2022 When Did You Quit Smoking? 1-5yearssincelastc igarette MIGRATION.030 056205 Information not available 09/10/2022 Do You Use Insect Repellent Routinely? Yes MIGRATION.0301 [id number] Information not available 09/10/2022 Where Do You Live? [facility] MIGRATION.0301 [id number] Information not available 09/10/2022 Do You Have A Medical Power Of Deputy General Counsel? No MIGRATION.0301 [id number] Information not available 09/10/2022 What Was The Date Of Your Most Recent Tobacco Screening? 08/20/2022 MIGRATION.0301 [id number] Information not available 09/10/2022 Do You Have Any Pets? Yes MIGRATION.0301 [id number] Information not available 09/10/2022 What Is Your Relationship Status? MIGRATION.0301 [id number] Information not available 09/10/2022 Do You Use Your Seat Belt Or Car Seat Routinely? Yes MIGRATION.0301 [id number] Information not available 09/10/2022 Do You Have Smoke And Carbon Monoxide Detectors In Your Home? Yes MIGRATION.0301 [id number] Information not available 09/10/2022 Are You Passively Exposed To Smoke? No MIGRATION.0301 [id number] Information not available 09/10/2022 Are There Any Smokers In Your House? No MIGRATION.0301 [id number] Information not available 09/10/2022 What Types Of Sporting Activities Do You Participate In? None MIGRATION.0301 [id number] Information not available 09/10/2022 Do You Use Sunscreen Routinely? Yes MIGRATION.0301 [id number] Information not available 09/10/2022 Has Tobacco Cessation Counseling Been Provided? No MIGRATION.0301 [id number] Information not available 09/10/2022 Have You Recently Traveled Abroad? No MIGRATION.0301 [id number] Information not available 09/10/2022 Do You Have Any Dietary Restrictions? No MIGRATION.0301 [id number] Information not available 09/10/2022 Sex: Female Functional Status Question Answer Note LastModified by Organizat ion Details LastModified Time Do you use any illicit or recreational drugs? No MIGRATION.84720 61260 Information not available 09/10/2022 Do you or have you ever used any other forms of tobacco or nicotine? Yes MIGRATION.68467 [id number] Information not available 09/10/2022 What is your level of alcohol consumption? None MIGRATION.69699 55556 Information not available 09/10/2022 What is your occupation? [employer] MIGRATION.52566 [id number] Information not available 09/10/2022 Do you or have you ever used e-cigarettes or vape? Current user of electronic cigarettes occasional MIGRATION.16362 73235 Information not available 09/10/2022 What is your exercise level? Heavy MIGRATION.78330 52167 Information not available 09/10/2022 Mental Status Question Answer Note LastModified by Organizat ion Details LastModified Time Do you feel stressed (tense, restless, nervous, or anxious, or unable to sleep at night)? [id number] [id number].[id number] 6 Information not available 09/10/2022 Family History Relationship Description Onset Age of this Age Resolved Age Notes LastModified by Organization Details LastModified Time Father Heart disease MIGRATION.943 [id number] Not available 09/10/2022 15:14:18 Father Malignant neoplasm of skin MIGRATION.980 [id number] Not available 09/10/2022 15:14:18 Mother Diabetes mellitus MIGRATION.660 [id number] Not available 09/10/2022 15:14:18 Mother Fibromyalgia MIGRATION.0 30 [id number] Not available 09/10/2022 15:14:18 Medical History Condition Response BOWEL PROBLEMS Y HAVE YOU BEEN HOSPITALIZED OR SEEN IN [facility] ER IN THE PAST YEAR ? Y HEARTBURN / REFLUX Y BLOOD CLOTS Y Gynecological History Statement/Question Response Abnormal Pap Y Date of Last Pap Smear 01/31/2020 Current Control Method Hysterectom y Age at Menarche 10 Date of LMP 02/01/2021 Breast Problems no Obstetrics History GPAL:G 3 P 3 0 0 3 Type Value Full Term 3 Living 3 Total 3 Past Encounters Encounter ID Performer Location Encounter Start Date Encounter Closed Date Diagnosis/Indication Diagnosis SNOMED-CT Code Diagnosis ICD10 Code Diagnosis Note [id number] [facility]_M I[facility]_ DEFAULT_1 _1 , 02/04/2021 00:00:00 02/04/2021 17:32:25 [id number] [facility]_M IGR[facility]_ DEFAULT_1 _1 , 02/11/2021 00:00:00 02/11/2021 12:21:44 [id number] [facility] _[facility]_M IGRATION_ DEFAULT_1 _1 , 05/06/2021 00:00:00 05/06/2021 13:40:14 [id number] [facility]M IGR[facility]_ DEFAULT_1 _1 , 05/22/2021 00:00:00 05/22/2021 13:58:29 [id number] Adarsh Hirsch MD [facility] Internal Med [facility] [address] [facility] [address] [address] 09/30/2021 00:00:00 09/30/2021 23:02:47 [id number] Adarsh Hirsch MD [facility] Internal Med [facility] [address] [place] [address], [address] [address] 10/23/2021 00:00:00 11/23/2021 21:50:56 [id number] Adarsh Hirsch MD [facility] Internal Med [facility] [address] [place] [address] 07/30/2022 00:00:00 07/30/2022 22:45:58 [id number] Adarsh Hirsch MD [facility] Internal Med [facility] [address] [place] [address], [address] [address] 08/20/2022 00:00:00 08/20/2022 20:33:48 [id number] Richard muñiz MD [facility] General Surgery [address] [place] [address], [address] [address] 08/28/2022 00:00:00 08/28/2022 13:22:58 [id number] Richard muñiz MD [facility] General Surgery [address] [place] [address], [address] [address] 1 10/14/2022 10:15:16 10/14/2022 12:03:55 Biliary dyskinesia [id number] K82.8 [id number] Richard muñiz MD [facility] General Surgery [address] [place] [address], [address] [address] 1 12/02/2022 10:52:56 12/02/2022 12:41:43 Health Concerns Section Related Observation LastModified by Organization Detai ls LastModified Time None Recorded Concern Status LastModified by Organization Details LastModified Time None Recorded Advance Directives Directive N: Payers Encounter Date Sequence Insurance Name Policy Number Policy Butt Covered Member ID Butt Member ID Guarantor Name 10/14/2022 1 [id number] Yaakov Vivod [id number] Yaakov Vivod 12/02/2022 1 [id number] Yaakov Vivod [id number] Yaakov Vivod Notes Date Note Type Note Provider Name and Address Organization Details Recorded Time 10/14/2022 text/html Patient continue s to complain of upper abdominal pain running toward back. US unremarkable, HIDA showed EF of 25%. CT showed hiatal hernia. Pt had a gastric sleeve 3 years ago. Richard Nguyen MD [address], [facility] [address], [place], [address], [employer] 10/14/2022 13:28:50 12/02/2022 text/html s/p lap romain la st week. having some intermittent epigastric discomfort, infrequent and mild. Reports she is tolerating regular diet. no fevers. some loose stools. Richard Nguyen MD [address], [address], [place], [address], [employer] 12/02/2022 11:41:15 OBGyn Episode No OBEpisode recorded.
--- OUTSIDE RECORDS SUMMARY | 2024-12-19 18:39 | XMS_ITS | Clinical Summary ---
Author Organization [facility] Address [address] [place] [address] Care Team Providers Care Installation Helper Name Role Phone Jace Hirsch MD Primary Care Provider [phone] Source Comments [facility],non-owned Affiliates and Associated Physician Practices is amultiple site organization consisting of ambulatory clinics and hospital sitesin [place], [place], [place] and [place]. This disclosure is being madepursuant to the Care Everywhere program and may not contain all information available regarding this patient. Last updated 18.[facility] Allergies Active Allergy Reactions Criticality Noted Date Comments Avocado Eye Itching 12/22/2019 Banana 08/20/2012 Latex Rash Medium 10/09/2018 Medications * Be aware that medications may not be up to date on this document. Alwaysverify current medications with the patient. VITAMINS PO Take by mouth. Active multivitamin daily tablet Take 1 tablet by mouth daily with food Active vitamin D3-cholecalcife rol (CHOLECALCIFERO L) 25 MCG (1000 UNITS) tablet Take 1,000 Units by mouth once daily Active Cyanocobalamin (VITAMIN B12 PO) Active fludrocortisone (FLORINEF) 0.1 MG tablet Take 2 tablets by mouth once daily 60 tablet 11 12/22/2019 Active Active Problems Problem Noted Date Diagnosed Date Syncope and collapse 12/25/2019 Preoperative cardiovascular examination 12/25/19 20 Other pre-existing hypertension, antepartum 08/13 Obesity 08/27/2012 anomaly- Pyelectasis & posture of hands Social History Tobacco Use Types Packs/Day Years Used Date Smoking Tobacco: Never Smokeless Tobacco: Never Alcohol Use Standard Drinks/Week Comments No 0 (1 standard drink = 0.6 oz pur e alcohol) Comments No Sex and Gender Information Value Date Recorded Sex Assigned at Not on file 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 Gender Identity Not on file Sexual Orientation Not on file Last Filed Vital Signs Vital Sign Reading Time Taken Comments Blood Pressure 123/83 12/22/2019 2:31 PM CDT Pulse 87 12/22/2019 2:31 PM CDT Temperature 36.6 C (97.9 F) 10/09/2018 1:06 PM CDT Respiratory Rate 20 10/09/2018 1:06 PM CDT Oxygen Saturation 99% 12/22/2019 2:31 PM CDT Inhaled Oxygen Concentration - - Weight 61.2 kg (135 lb) 12/22/2019 2:31 PM CDT Height 162.6 cm (5' 4) 12/22/2019 2:31 PM CDT Body Mass Index 23.17 12/22/2019 2:31 PM CDT Plan of Treatment Health Maintenance Due Date Last Done Comments LIPID TESTING 1983 MAMMOGRAM 1983 HIV SCREENING 10/21/1998 HEPATITIS C SCREENING 10/17/2001 DTAP/TDAP/TD VACCINES (1 - Tdap) 10/21/2002 HEPATITIS B VACCINE (1 of 3 - 19+ 3-dose series) 10/21/2002 COVID-19 VACCINE ( - 2023-2 5 season) 2024 DEPRESSION SCREENING 07/13/2024 INFLUENZA VACCINE (Season Ended) 2025 ZOSTER VACCINE (1 of 2) 10/21/2033 HIB VACCINE Aged Out No longer eligi ble based on patient's age to complete this topic HPV VACCINE Aged Out No longer eligi ble based on patient's age to complete this topic MENINGOCOCCAL (Group B) VACC INE SHARED DECISION-MAKING Aged Out No longer eligibl e based on patient's age to complete this topic MENINGOCOCCAL GROUPS A/C/Y/W VACCINE Aged Out No longer eligible b ased on patient's age to complete this topic PNEUMOCOCCAL VACCINE Aged Out No long er eligible based on patient's age to complete this topic Insurance [facility] [address] [place] [address] Care Teams Installation Helper Relationship Specialty Start Date End Date Jace Hirsch MD PCP - General Internal Medicine 10/09/18
--- OUTSIDE RECORDS SUMMARY | 2024-12-19 18:39 | XMS_ITS | Clinical Summary ---
Author Organization [facility] Address [address] [place] [address] Phone Care Team Providers Care Necktie Centralizing Machine Operator Name Role Phone Jace Hirsch MD Primary Care Provider [phone] Allergies Active Allergy Reactions Criticality Noted Date Comments Banana Diarrhea,Nausea and Vomiting Low 019 Latex Unknown 09/15/2018 Morphine Itching Low 09/30/2018 Unclassified Drug Swelling Low 09/30/2018 Medications fludrocortisone (FLORINEF) 0.1 mg tablet TK 2 TS PO QD 12/22/2019 Active Active Problems Problem Noted Date Diagnosed Date Essential hypertension 10/06/2018 General medical exam 10/06/2018 Family History Medical History Relation Name Comments Heart Disease Father Other Mother Relation Name Status Comments Father Mother Social History Tobacco Use Types Packs/Day Years Used Date Smoking Tobacco: Former Smokeless Tobacco: Never Alcohol Use Standard Drinks/Week Comments No 0 (1 standard drink = 0.6 oz pur e alcohol) prior to surgery occasionally Comments No Sex and Gender Information Value Date Recorded Sex Assigned at Not on file 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 Gender Identity Not on file Sexual Orientation Not on file Last Filed Vital Signs Vital Sign Reading Time Taken Comments Blood Pressure 113/77 12/29/2019 5:56 PM CDT Pulse 110 12/29/2019 5:56 PM CDT Temperature 37 C (98.6 F) 12/29/2019 5:56 PM CDT Respiratory Rate 18 12/29/2019 5:56 PM CDT Oxygen Saturation 98% 12/29/2019 5:56 PM CDT Inhaled Oxygen Concentration - - Weight 60.3 kg (133 lb) 12/29/2019 5:56 PM CDT Height 162.6 cm (5' 4) 12/29/2019 5:56 PM CDT Body Mass Index 22.83 12/29/2019 5:56 PM CDT Plan of Treatment Health Maintenance Due Date Last Done Comments DTAP/TDAP/TD VACCINES (1 - Tdap) 10/21/2002 HEPATITIS B VACCINES (1 of 3 - 19+ 3-dose series) 10/21/2002 HPV/Cotest (21-29) 10/21/2004 CERVICAL CANCER SCREENING 10/21/2013 HPV/Cotest (30-65) 10/21/2013 PAP SMEAR 10/21/2013 BREAST CANCER SCREENING 2023 INFLUENZA VACCINE (#1) 2024 HPV VACCINES Aged Out No longer eligi ble based on patient's age to complete this topic Medical Devices Implanted Type Area Cloth Booker Device Identifier Shelf Expiration Date Model / Serial / Lot Seamguard Endogia 60 Blck [id number] - [id number] Implanted:Qty : 2 on 10/06/2018 by Ady Augustine MD at [facility] Biological N/A: Stomach [employer] 05/12/2021 [id number] / / [id number] Seamguard Endogia 60 Prpl [id number] - [id number] Implanted:Qty : 2 on 10/06/2018 by Ady Augustine MD at [facility] Biological N/A: Stomach [employer] 04/11/2021 [id number] / / [id number] Insurance RX [employer] (INTERNAL) [facility] RX [employer] CIG OA HMO POS NETWORK Advance Directives For more information, please contact: [phone] * Full Code (Latest Code Status on File) Date Activated Date Inactivated Comments 10/06/2018 9:58 AM 10/07/2018 8:14 PM * Full Code Date Activated Date Inactivated Comments 10/06/2018 5:41 AM 10/06/2018 9:57 AM * Full Code Date Activated Date Inactivated Comments 09/17/2018 5:44 AM 09/17/2018 10:03 AM Care Teams Necktie Centralizing Machine Operator Relationship Specialty Start Date End Date Jace Hirsch MD [address] [place] [id number] PCP - General Internal Medicine 09/16/18
[2024-12-19 22:07] VITALS: BP 132/87; PULSE 65; RESP 18; TEMP 36.7; O2SAT 100
--- NOTE | 2024-12-19 22:16 | ED_ITS ---
HPI - General Adult General Chief complaint: Extremity Injury, Lower Stated complaint: R knee pain Time Seen by Provider: 12/19/24 22:07 History of Present Illness HPI narrative: Patient is a 39-year-old female who presents emergency department this evening complaining of right knee pain. Patient states that this started on Thursday after an injury. Patient was swinging on a saucer swing and states that when she was using her legs to push off to move this week she felt as though she tore something. States that she has been having some knee pain to the medial aspect of her right knee radiating to the back of the knee. Denies any additional injuries. No additional symptoms or concerns at this time. Patient states that she has been taking Tylenol as she cannot take ibuprofen since she has had a history of gastric bypass. Related Data Home Medications ?Medication ?Instructions ?Recorded ?Confirmed ?Last Taken ?Type cetirizine 10 mg tablet (Zyrtec) 20 mg PO DAILY 12/29/23 12/29/23 Unknown History omalizumab [Xolair] subcut 12/29/23 12/29/23 Unknown History prednisone PO 12/29/23 12/29/23 Unknown History Allergies Allergy/AdvReac Type Severity Reaction Status Date / Time banana Allergy Intermediate Vomiting Verified 12/19/24 18:37 avocado Allergy Unknown ITCHY Verified 12/19/24 18:37 THROAT latex Allergy Unknown Rash Verified 12/19/24 18:37 oxycodone AdvReac Unknown Dizziness Verified 12/19/24 18:37 Review of Systems Review of Systems: All systems are reviewed and are negative unless stated otherwise in the HPI. [facility] Past Medical History Medical History Vaping nicotine dependence, tobacco product BMI 29.0-29.9,adult Insomnia Screening for breast cancer delivery delivered 3 History of gastrectomy Hypertension Anxiety Arthritis No significant medical problems Surgical History Surgical History Hx of cholecystectomy 2022 H/O gastric sleeve 2018 H/O: hysterectomy H/O tubal ligation History of lumbar fusion H/O breast surgery H/O dilation and curettage Status post hysteroscopic ablation of endometrium No history of previous surgery Family History Family History Father Heart disease Skin cancer Mother Diabetes mellitus Fibromyalgia Social History Social History Smoking status: Current every day smoker Tobacco type: e-cigarettes/vaping Alcohol intake: current Alcohol use details: socially Substance use: never Substance use type: does not use Gender identity (if verbalized by the patient): Female Exam Narrative: General: Alert, awake, afebrile, in no acute distress. HEENT: PERRL, no rhinorrhea, no post nasal drip, oropharynx clear. Neck: Trachea midline, no JVD, no lymphadenopathy. Cardiovascular: Regular rate and rhythm, no murmurs, rubs or gallops, no peripheral edema. Respiratory: Clear to auscultation bilaterally, no tachypnea, no wheezing, no rhonchi, no rubs, no respiratory distress. Abdomen: Soft, nontender, nondistended, no rebound, no guarding, no peritoneal signs. Musculoskeletal: No joint swelling or deformity specifically in the right knee, no joint effusion noted, intact flexion and extension of the right knee joint. Skin: No rashes or petechia, no signs of infection. Psychiatric: Alert and oriented, normal behavior and judgment for situation. Neurological: Alert and oriented to person, place, and time. Follows all commands. No focal deficits, speech is clear and fluent. Course Vital Signs Vital signs: Vital Signs Temperature 97.7 F 12/19/24 18:38 Pulse Rate 111 H 12/19/24 18:38 Respiratory Rate 16 12/19/24 18:38 Blood Pressure 136/72 12/19/24 18:38 Pulse Oximetry 100 12/19/24 18:38 Oxygen Delivery Room Air 12/19/24 18:38 Temperature 98.1 F 12/19/24 22:07 Pulse Rate 65 12/19/24 22:07 Respiratory Rate 18 12/19/24 22:07 Blood Pressure 132/87 12/19/24 22:07 Pulse Oximetry 100 12/19/24 22:07 Oxygen Delivery Room Air 12/19/24 18:38 Medical Decision Making MDM Narrative Medical decision making narrative: The patient was evaluated by myself in the emergency department. History is obtained from patient who is an independent historian and physical exam was performed. External medical records were reviewed at this time. Patient was administered an oral [place] 5-325 mg. Patient does have at allergy to Percocet but states that she has had no course in the past and she has not developed an allergy to it. Imaging studies obtained included right knee x-ray which was independently interpreted by me revealing no acute process, which is pending final radiology interpretation. Patient was placed in an Carlos wrap for comfort. Differential diagnosis considerations include internal derangement of the right knee including ACL/PCL/meniscal injury, fracture, dislocation. Comorbidities impacting this visit include none. I have evaluated and discussed social determinants of health with the patient that could potentially impact subsequent diagnosis and treatment plans. On repeat assessment of the patient, reevaluation revealed that the patient is doing well and is in no acute distress. Patient symptoms have improved since she arrived to our emergency department. Repeat vital signs were all reviewed and noted to be stable. Differential diagnosis and treatment plan were discussed with the patient at bedside. Patient agrees with discussion and after shared medical decision making agrees with discharge. All questions were answered to the patient's satisfaction. Patient will follow up with Orthopedics in 3-5 days. Script for [place] was sent to her pharmacy to use as needed for pain. Patient was provided with strict return precautions and instructed to return to the emergency department if any new or worsening symptoms develop. The patient was discharged in stable condition. Vital Signs Vital Signs: Vital Signs Temperature 97.7 F 12/19/24 18:38 Pulse Rate 111 H 12/19/24 18:38 Respiratory Rate 16 12/19/24 18:38 Blood Pressure 136/72 12/19/24 18:38 Pulse Oximetry 100 12/19/24 18:38 Oxygen Delivery Room Air 12/19/24 18:38 Temperature 98.1 F 12/19/24 22:07 Pulse Rate 65 12/19/24 22:07 Respiratory Rate 18 12/19/24 22:07 Blood Pressure 132/87 12/19/24 22:07 Pulse Oximetry 100 12/19/24 22:07 Oxygen Delivery Room Air 12/19/24 18:38 Discharge Plan Discharge Clinical Impression: Acute internal derangement of right knee Patient Disposition: Home Condition: Improved Instructions: Antibiotic Form, Knee Sprain (ED) Additional Instructions: Please follow-up with your orthopedic surgeon you were provided with today within the next 3-5 days and he will need a right knee MRI for further evaluation of any ligament or meniscal injury. Use the prescribed medication as needed for pain. Return to the ED if any new or worsening symptoms develop. Patient Language: [place] Islander Prescriptions: New hydrocodone-acetaminophen 5-325 mg tablet 1 tablet PO Q8H PRN (Reason: pain) Qty: 10 0RF No Action prednisone PO cetirizine [Zyrtec] 10 mg tablet 20 mg PO DAILY omalizumab [Xolair] subcut epinephrine 0.3 mg/0.3 mL auto-injector 0.3 mg IM ONCE Qty: 2 0RF Rx Instructions: as a single dose; may repeat once Follow-up/Referrals: Torrey,MD Jace [Primary Care Provider] - Ja Key MD [Physician] - 3 Days Time of Disposition: 22:16
[2024-12-19] MEDS: HYDROcodone/acetaminophen (*CRX) 5-325 MG TABLET 1 TAB PO (22:18)
--- OUTSIDE RECORDS SUMMARY | 2024-12-19 22:26 | XMS_ITS | Encounter Summary ---
Author Organization [facility] Address [address] [place] [address] Care Team Providers Care Ordnance Truck Installation Mechanic Name Role Phone Jace Hirsch MD Primary Care Provider [phone] Encounter Details Date Type Department Care Team (Late st Contact Info) Description 10/09/2018 Ophth Exam [facility] [address] [place] [address] Eugene Hirsch MD [address] [facility] [address] [place] [address] Social History Tobacco Use Types Packs/Day Years Used Date Smoking Tobacco: Never Smokeless Tobacco: Never Alcohol Use Standard Drinks/Week Comments No 0 (1 standard drink = 0.6 oz pur e alcohol) Comments No Sex and Gender Information Value Date Recorded Sex Assigned at Not on file 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
--- OUTSIDE RECORDS SUMMARY | 2024-12-19 22:26 | XMS_ITS | Clinical Summary ---
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 A 0.8 cm area of heterogeneous [...] has been scheduled to return to the [facility] for biopsy on 07/29/2022 at 9:00 AM. This facility will contact the referring clinician's office for an order. Dictated by: Nikita Martin M.D. The radiology attending physician has personally reviewed this study, and had reviewed and/or edited this written report and agrees with it. Electronically signed by: Katina Boogie M.D. Narrative 07/22/2023 5:17 PM MOTOR OVERHAULER EXAMINATION: BILATERAL DIGITAL DIAGNOSTIC MAMMOGRAM INCLUDING CAD [...] LEFT breast was performed by a trained yoke setter and by Dr. Boogie. BREAST PARENCHYMAL COMPOSITION: [...] LEFT breast was performed by a trained yoke setter and by Dr. Boogie. BREAST PARENCHYMAL COMPOSITION: [...] has been scheduled to return to the [facility] for biopsy on 07/29/2022 at 9:00 AM. This facility will contact the referring clinician's office for an order. Dictated by: Nikita Martin M.D. The radiology attending physician has personally reviewed this study, and had reviewed and/or edited this written report and agrees with it. Electronically signed by: Katina Boogie M.D. Result [facility] Yamilka Robertson NP IMG MAMMO PROCEDURES Final Result from Last 3 Months or Most Recently Relevant to Health Maintenance [place] [address] [place] [address] Meeps MD Meeps MD Care Teams Improvement Coordinator Relationship Specialty Start Date End Date No, Physician PCP - General 12/10/23
--- OUTSIDE RECORDS SUMMARY | 2024-12-19 22:26 | XMS_ITS | CONTINUITY OF CARE DOCUMENT ---
Author Name sidney little Address Unknown Organization [facility] Address [address] [place] [address] Phone [phone] Care Team Providers Care Green Plumber Name Role Phone Chris Mojica MD Unavailable ADARSH SARAVIA MD Unavailable ADARSH SARAVIA MD Unavailable PROBLEMS Condition Status Date Provider Notes Palpitation [...] In-person encounter Office Visit Jordi Warren MD [facility] - In-person encounter Office Visit Jordi Warren MD [facility] Near Syncope - In-person encounter Office Visit Jordi Warren MD [facility] CHEST PAIN-TYPE TO BE DETERMINEDHTN essentialSinus tachycardia - In-person encounter Office Visit Chris Mojica MD [facility] - In-person encounter Office Visit Chris Mojica MD [facility] DVTOBESITY VITAL SIGNS Date Observation Value [...] [lb_av] Kristi O'Pa height E&M 64 [in_i] [facility] O'Pa Body Mass Index (Ratio) 40.02 [...] MD social history reviewed E&M reviewed Chris Moijca MD physical exercise, frequency, days per week [...] Payer name Policy type / Coverage type [place] red democrat ID [facility] [id number] [employer] insurance [employer] [id number] ADVANCE DIRECTIVES Name Date DISCUSSED - NO [...] will get reports. Orders: C omplete Echo ([id number]) Chris Mojica MD Date Name Complete Echo Complete Echo HISTORY OF PROCEDURES Procedure Date Procedure Name Provider Procedure Notes S tatus EKG Jordi Warren MD completed RUBI Mojica MD co mpleted EKG Suleman Machado RN completed
--- OUTSIDE RECORDS SUMMARY | 2024-12-19 22:26 | XMS_ITS | Encounter Summary ---
[facility] Organization [facility] Address [address] [place] [address] Care Team Providers Care Immigration Paralegal Name Role Phone Jace Hirsch MD Primary Care Provider [phone] Encounter Details Date Type Department Care Team (Late st Contact Info) Description 09/29/[address] [id number] Ady Augustine MD [address] [address] Social History Tobacco Use Types Packs/Day Years Used Date Smoking Tobacco: Former Smokeless Tobacco: Never Alcohol Use Standard Drinks/Week Comments Yes 0 (1 standard drink = 0.6 oz pur e alcohol) Comments No Sex and Gender Information Value Date Recorded Sex Assigned at Not on file Legal 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
--- OUTSIDE RECORDS SUMMARY | 2024-12-19 22:26 | XMS_ITS | Referral Summary ---
Author Organization [facility] Address [address] [place] [id number] Care Team Providers Care Shelf Stocker Name Role Phone No, Physician Primary Care Provider Allergies Active Allergy Reactions Criticality Noted Date [...] on file Legal Sex Female 11:31 AM PROSTHETICS TECHNICIAN Gender Identity Not on file Sexual Orientation [...] Read Routine (OP Routine) 07/22/2023 4:25 PM PROSTHETICS TECHNICIAN Mass of left breast, unspecified quadrant Phyllodes tumor of breast from Last 3 Months or Most Recently Relevant to Health Maintenance Results * Diagnostic Mammogram Bilateral [facility] [place] (07/22/2023 4:25 PM PROSTHETICS TECHNICIAN) Anatomical Region Laterality Modality Breast Bilateral Mammography 07/22/2023 4:32 PM PROSTHETICS TECHNICIAN Impressions 07/22/2023 5:17 PM PROSTHETICS TECHNICIAN 1. A 0.8 cm area of heterogeneous [...] been scheduled to return to the [facility] for biopsy on 07/29/2022 at 9:00 AM. This facility will contact the referring clinician's office for an order. Dictated by: Nikita Martin M.D. The radiology attending physician has personally reviewed this study, and had reviewed and/or edited this written report and agrees with it. Electronically signed by: Katina Boogie M.D. Narrative 07/22/2023 5:17 PM PROSTHETICS TECHNICIAN EXAMINATION: BILATERAL DIGITAL DIAGNOSTIC MAMMOGRAM INCLUDING CAD [...] LEFT breast was performed by a trained wind projects supervisor and by Dr. Boogie. BREAST PARENCHYMAL COMPOSITION: [...] LEFT breast was performed by a trained wind projects supervisor and by Dr. Boogie. BREAST PARENCHYMAL COMPOSITION: [...] Most Recently Relevant to Health Maintenance Insurance [facility] [facility] [employer] [facility] Care Teams Shelf Stocker Relationship Specialty Start Date End Date No, Physician PCP - General 12/10/23
--- OUTSIDE RECORDS SUMMARY | 2024-12-19 22:26 | XMS_ITS | Clinical Summary ---
Author Organization [facility] Address [address] [address] Care Team Providers Care Patient Access Director Name Role Phone Jace Hirsch MD Primary Care Provider [phone] Source Comments [facility],non-owned Affiliates and Associated Physician Practices is amultiple site organization consisting of ambulatory clinics and hospital sitesin [place], [place], [place] and [place]. This disclosure is being madepursuant to the Care Everywhere program and may not contain all information available regarding this patient. 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
--- OUTSIDE RECORDS SUMMARY | 2024-12-19 22:26 | XMS_ITS | Clinical Summary ---
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 Gender Identity Not on file Sexual [...] this topic Medical Devices Implanted Type Area Laboratory Technical Specialist Device Identifier Shelf Expiration Date Model / Serial / Lot Seamguard Endogia 60 Blck [id number] - [id number] Implanted:Qty : 2 on 10/06/2018 by Ady Augustine MD at [facility] Biological N/A: Stomach [employer] 05/12/2021 [id number] / / [id number] Seamguard Endogia 60 Prpl [id number] - [id number] Implanted:Qty : 2 on 10/06/2018 by Ady Augustine MD at [facility] Biological N/A: Stomach [employer] 04/11/2021 [id number] / / [id number] Insurance RX [employer] (INTERNAL) [facility] RX [employer] CIG OA HMO POS NETWORK Advance Directives For more information, please contact: [phone] * Full Code (Latest Code Status on File) Date Activated Date Inactivated Comments 10/06/2018 9:58 AM 10/07/2018 8:14 PM * Full Code Date Activated Date Inactivated Comments 10/06/2018 5:41 AM 10/06/2018 9:57 AM * Full Code Date Activated Date Inactivated Comments 09/17/2018 5:44 AM 09/17/2018 10:03 AM Care Teams Card Painter Relationship Specialty Start Date End Date Jace Hirsch MD [address] [place] [id number] PCP - General Internal Medicine 09/16/18
[2024-12-19 23:07] VITALS: BP 111/79; PULSE 64; RESP 17; TEMP 37.1; O2SAT 100
== END 2024-12-19 23:00 | disposition home or self-care (01) ==
LOC: ANHED 22:25
PROVIDERS: Emergency Provider Emergency Medicine; PCP Internal Medicine
DX: M23.91 Unspecified internal derangement of right knee (principal); S89.91XA Unspecified injury of right lower leg, initial encounter; I10 Essential (primary) hypertension; M19.90 Unspecified osteoarthritis, unspecified site; F41.9 Anxiety disorder, unspecified; Z98.84 Bariatric surgery status; Z90.49 Acquired absence of other specified parts of digestive tract; Z90.710 Acquired absence of both cervix and uterus; Z98.1 Arthrodesis status; X50.9XXA Other and unspecified overexertion or strenuous movements or postures, initial encounter
CPT/HCPCS: 73562; 99283; A9270